=== PATIENT | male | born 1955 | race Caucasian/White ===

== ENCOUNTER 2016-12-10 09:00 | Observation (INO) | payer OTHER ==
--- NOTE | 2016-12-03 16:45 | HP ---
CC: Dr. Roblero; Dr. López; Preadmission Testing at the Hospital HISTORY AND PHYSICAL EXAM: DATE OF ADMISSION: 12/24/16 CHIEF COMPLAINT: Increasing left knee pain and swelling. HISTORY OF PRESENT ILLNESS: This 60-year-old white male has been having increased discomfort of his left knee over the years. He says that he had a football injury dating back to 1972 of the left knee. He has had pain and weakness of the left knee that is increasing. It is worse with walking. He has difficulty going up and downstairs as well. Dr. López has scheduled the patient for left total knee replacement on 12/24/16 at [facility]. PAST MEDICAL HISTORY: The patient is under the care of Dr. Andre Roblero. The patient is having cardiac evaluation preoperatively with Dr. Dugan. He has a stress test scheduled for December 03 and a followup appointment to discuss the results on December 14 for surgery clearance regarding his cardiac status. The patient has a history of congestive heart failure dating back to year 1999. He has a history of hypertension, leg edema, insulin-dependent diabetes. His blood sugars are in the range of 140 to 170s. He has neuropathy symptoms related to his diabetes in his feet and hands, morbid obesity, and sleep apnea. He had a right rotator cuff full tear with a supraspinatus dating back to May of 2015, which results in some weakness, but no pain. CURRENT MEDICATIONS: 1. Metoprolol 100 mg t.i.d. 2. Potassium 10 mEq b.i.d. 3. Metformin 1000 mg b.i.d. 4. Furosemide 80 mg daily. 5. Lisinopril 40 mg daily. 6. Gabapentin 300 mg q.h.s. 7. Diclofenac 75 mg b.i.d. p.r.n.; the patient does take it b.i.d. 8. He has tramadol 50 mg b.i.d. which he takes every couple of days for breakthrough pain. 9. He also takes vitamin D3 200 units daily. The patient is restarted on Lantus insulin as of 12/02/16, 30 units q.a.m. ALLERGIES: No known drug allergies. FAMILY HISTORY: Father: Hypertension, Parkinson's disease. Mother: Smoker, she of complications of ischemic colitis. Maternal grandfather: Coronary artery disease and [place] in his 60s. Paternal grandmother: CVA in her 80s. Paternal grandfather: [place] in his 80s. SOCIAL HISTORY: The patient lives in the [place] area. He is single. 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 He has never been a smoker. Alcohol is limited to wine or beer couple of drinks per month. REVIEW OF SYSTEMS: He does wear contacts for glasses. He has dyspnea on exertion, deconditioned, occasional ankle edema. He has symptoms of peripheral neuropathy in both feet and in his hands. He denies chest pain with exertion. He has some urinary frequency, very rarely nocturia. As previously mentioned, he does have some weakness of his right shoulder and rotator cuff tear. He has chronic low back pain complaints and left knee pain. PHYSICAL EXAMINATION GENERAL: This 60-year-old white male, who is alert, pleasant, and cooperative. VITAL SIGNS: Height 5 feet 9 inches, weight 300 pounds, blood pressure slightly elevated at 152/86, pulse 68. HEENT: Ears normal. Mouth: Tongue in the midline. Many molars are missing; otherwise, teeth in good repair. Pharynx is clear. NECK: Fair range of motion. No adenopathy. No tenderness. Thyroid benign. BACK: Normal curvature. No tenderness noted of the spine or CVA areas. LUNGS: Clear. HEART: Rhythm is regular. Apical pulse 68 beats per minute. No murmurs. EKG , stress test will be done by Dr. Dugan. ABDOMEN: Massively obese. Active bowel sounds. Abdomen is soft, nontender. No obvious masses or organomegaly. EXTREMITIES: No cyanosis. He does have pitting edema 2+ on the left, 1+ on the right up to the knees. Otherwise, skin is in good condition, warm, dry, pale, pink. No open areas noted. IMPRESSION: Overall general medically, the patient is cleared for his surgery with Dr. Angela López on 12/24/16 for the left total knee replacement. Dr. Dugan's cardiac assessment is still pending. JAVY BANERJEE, LONA [id number]/[facility] #: [id number] [facility]
--- NOTE | 2017-02-03 15:08 | HP ---
HISTORY AND PHYSICAL: DATE OF SURGERY/ADMISSION: 02/09/17 DATE OF OFFICE VISIT: 02/03/17 SURGEON: Angela López MD. PROCEDURE: Left total knee arthroplasty. CHIEF COMPLAINT: Left knee pain. HISTORY OF PRESENT ILLNESS: Max is a 61-year-old gentleman with complaints of left knee pain secondary to advanced osteoarthritis. He has failed conservative management and has elected to proceed with a left total knee arthroplasty which is scheduled for 02/09/17. PAST MEDICAL HISTORY: 1. Diabetes. 2. Hypertension. 3. Congestive heart failure. 4. Obesity. PAST SURGICAL HISTORY: 1. Tonsillectomy. 2. Cardiac catheterization. CURRENT MEDICATIONS: 1. Metoprolol 100 mg. 2. Lisinopril 20 mg once a day. 3. Furosemide 80 mg once a day. 4. Potassium citrate ER 10 mEq twice a day. 5. Metformin 1000 mg twice a day. 6. Diclofenac 75 mg twice a day. 7. Gabapentin 300 mg 3 times a day. 8. Vitamin D3 2000 units once a day. 9. Tramadol 50 mg as needed. 10. Lantus 30 units a day. ALLERGIES: None. FAMILY HISTORY: Denies. SOCIAL HISTORY: This is a 61-year-old gentleman, he lives alone. He does not smoke or use drugs. He uses occasional alcohol. REVIEW OF SYSTEMS: A complete 14-point review of systems was reviewed with the patient, positive for diabetes. He denies history of DVT, PE, anesthesia problems, hepatitis C or HIV. PHYSICAL EXAMINATION GENERAL: He is well developed, well nourished, in no acute distress. He is alert and oriented x3. Pleasant mood and appropriate affect. VITAL SIGNS: He stands 5 feet 9 inches tall, weighs 297 pounds. His blood pressure is 169/85, his heart rate is 57. HEENT: Normocephalic, atraumatic. NECK: Supple. No palpable lymph nodes. CARDIO: Regular rate and rhythm. PULMONARY: His lungs are clear to auscultation bilaterally. ABDOMEN: Soft, nontender, nondistended. MUSCULOSKELETAL: Left lower extremity, the skin is intact. There is moderate joint effusion. Tenderness over the medial and lateral joint line; 10 to 110 degrees of flexion. Lower extremity muscle group strengths are intact at 5/5. He has intact sensation. 2+ dorsalis pedis pulses. NEUROLOGICAL: Cranial nerves II through XII are intact. ASSESSMENT AND PLAN: Max is a 61-year-old gentleman with complaints of left knee pain secondary to advanced osteoarthritis. He has failed conservative management and has elected to proceed with a left total knee arthroplasty, which is scheduled for 02/09/[address] López discussed the risks and benefits of the surgery and all of his questions were answered on today's visit. Coumadin, Percocet, and Colace were sent to his pharmacy for postoperative pain control and DVT prophylaxis. He will see Dr. López back in 2 weeks after the surgery. INOCENTE PAZ [id number]/[facility] #: [id number] MTDD
[2017-02-08] MEDS ORDERED: Buffered Lidocaine 0.9% SYRIN* 5 ML/SYR SYRINGE INTRADERM ONE (10:57)
[2017-02-09] MEDS ORDERED: Gabapentin CAP(*) 300 MG PO ONE (06:00)
[2017-02-09] MEDS ORDERED: Famotidine IV* 10 MG/ML 2 ML (20 mg) IV ONE (06:00)
[2017-02-09] MEDS ORDERED: Famotidine IV* 10 MG/ML 2 ML (20 mg) ONE (09:45)
[2017-02-09] MEDS ORDERED: Gabapentin CAP(*) 300 MG ONE (09:46)
[2017-02-09] MEDS ORDERED: CeFAZolin 1 GM PREMIX(*) 1 GM BAG (REFRIGERATE) IVPB ONE (09:46)
[2017-02-09] MEDS ORDERED: ceFAZolin 2 GM PREMIX(*) 0 GM/0 ML BAG IVPB ONE (09:46)
[2017-02-09] MEDS ORDERED: Buffered Lidocaine 0.9% SYRIN* 5 ML/SYR SYRINGE ONE (09:46)
[2017-02-09] MEDS ORDERED: fentaNYL* 50 MCG/ML 2 ML VIAL (100 MCG VIAL) ONE (09:51)
[2017-02-09] MEDS ORDERED: KETAMINE HCL* 50 MG/ML 10 ML VIAL ONE (09:52)
[2017-02-09] MEDS ORDERED: Midazolam* 1 MG/ML 5 ML VIAL (5 MG) ONE (09:52)
[2017-02-09] MEDS ORDERED: Propofol* 10 MG/ML 20 ML BTL IV PUSH ONE (09:54)
[2017-02-09] MEDS ORDERED: Ketorolac INJ* 30 MG/ML 1 ML VIAL ONE (09:54)
[2017-02-09] MEDS ORDERED: Lidocaine 2% PF * 5 ML VIAL ONE (09:54)
[2017-02-09] MEDS ORDERED: Ondansetron INJ* 2 MG/ML VIAL ONE (09:54)
[2017-02-09] MEDS ORDERED: Dexamethasone IV* 4 MG/ML 1 ML (4 MG) ONE (09:54)
[2017-02-09] MEDS ORDERED: ROPIVACAINE 5 MG/ML 30 ML BTL (0.5%) ONE (09:55)
[2017-02-09] MEDS ORDERED: diPHENhydraMINE IV* 50 MG/ML 1 ml VIAL (BENADRYL) IV PRN (12:24)
[2017-02-09] MEDS ORDERED: Acetaminophen TAB* 325 MG PO PRN (12:24)
[2017-02-09] MEDS ORDERED: Ondansetron INJ* 2 MG/ML VIAL IV PRN (12:24)
[2017-02-09] MEDS ORDERED: Morphine INJ* 2 MG/ML 1 ML SYRINGE IV PRN (12:24)
[2017-02-09] MEDS ORDERED: Docusate CAP* 100 MG PO PRN (12:41)
[2017-02-09] MEDS ORDERED: Bisacodyl SUPP* 10 MG SUPP PR PRN (12:42)
[2017-02-09] MEDS ORDERED: diPHENhydraMINE PO* 50 MG PO PRN (13:44)
[2017-02-09] MEDS ORDERED: Furosemide IV* 10 MG/ML VIAL (40 MG) IV SLOW PU ONE (13:44)
[2017-02-09] MEDS ORDERED: Dextrose 50% Syringe 50 ML* 25 GM/50 ML SYRINGE IV PUSH PRN (13:44)
[2017-02-09] MEDS ORDERED: traMADol TAB* 50 MG PO PRN (13:46)
[2017-02-09 15:13] LABS: Hematocrit 40 % (42-52); Hemoglobin 13.6 g/dl (14.0-18.0); Mean Corpuscular HGB Conc 34 g/dl (31-36); Mean Corpuscular Hemoglobin 32 pg (27-31); Mean Corpuscular Volume 94 fL (80-94); Mean Platelet Volume 8 um3 (7.4-10.4); Red Blood Count 4.21 10^6/ul (4.0-5.4); Red Cell Distribution Width 13 % (10.5-15); White Blood Count 9.2 10^3/ul (3.5-10.8)
[2017-02-09] MEDS ORDERED: Furosemide IV* 10 MG/ML VIAL (40 MG) ONE (15:26)
[2017-02-09 15:29] LABS: BUN/Creatinine Ratio 19.1 (8-20); C Reactive Protein 139.4 mg/L (< 5.00); Calcium 9.2 mg/dL (8.6-10.3); EGFR African American 82.6 (>60); EGFR Non-African American 64.2 (>60); Potassium 4.3 mmol/L (3.5-5.0)
[2017-02-09] MEDS: predniSONE TAB* 20 MG PO SCH (15:32)
[2017-02-09] MEDS: Heparin VIAL(*) 5000 UNITS/ML VIAL (FIVE THOUSAND) SUBCUT SCH ×2 (15:33→21:40)
[2017-02-09] MEDS: oxyCODONE/Acetamin 5/325 MG* TAB PO PRN ×2 (15:39→19:52)
[2017-02-09] MEDS: ceFAZolin 2 GM PREMIX(*) 2 GM/50 ML BAG IVPB SCH (16:52)
[2017-02-09] MEDS: Insulin LISPRO* 1 UNITS UNIT SUBCUT SCH (18:09)
[2017-02-09] MEDS: Cyclobenzaprine TAB* 10 MG PO PRN (18:09)
[2017-02-09] MEDS: Metoprolol Tartrate TAB* 100 MG TAB PO SCH (19:52)
[2017-02-09] MEDS: Famotidine IV* 10 MG/ML 2 ML (20 mg) IV SCH (19:52)
[2017-02-09] MEDS: Gabapentin CAP(*) 300 MG PO SCH (21:44)
[2017-02-09] MEDS ORDERED: NS 0.9% 500 ML BAG* 500 ML IV ONE (22:00)
--- NOTE | 2017-02-09 22:14 | HP ---
ADMISSION HISTORY AND PHYSICAL: DATE OF ADMISSION: 02/09/17 CHIEF COMPLAINT: Bilateral lower extremity pain, swelling, and erythema. ADMITTING DIAGNOSIS: Bilateral lower extremity cellulitis and edema, inability to ambulate, unsafe to return to home. HISTORY OF PRESENT ILLNESS: Mr. Domínguez is a 61-year-old gentleman with chronic left knee pain due to severe advanced arthritis. He has been scheduled for left total knee arthroplasty. On his preoperative testing, he was found to have calcification along the mediastinal region. A CT of the chest with contrast was ordered. This showed benign thyroid calcification and some granulomatous chronic-appearing disease of the lungs. He was cleared for surgery by Dr. Roblero and we planned to proceed. The patient presents today to the preop area reporting that since the contrast, he has had swelling and itching of his lower extremities. The itching caused him to scratch and he does have superficial open wounds. He then started to develop swelling, erythema, pain, and difficulty ambulating. On presentation, the patient certainly has bilateral lower extremity warmth and erythema consistent with cellulitis. He has not had any antibiotics. He was unable to ambulate normally and had to be assisted for transfer here. He is unable to return to home, but is clearly not a surgical candidate for an elective total knee arthroplasty today. We will admit him for treatment of the bilateral lower extremity cellulitis and edema. He will have physical therapy. He will either advance or be discharged to a nursing home facility where he is more safe. PAST MEDICAL HISTORY: Diabetes; hypertension; congestive heart failure; obesity ; obstructive sleep apnea; diabetes, type 2. PAST SURGICAL HISTORY: T and A, cardiac cath. CURRENT MEDICATIONS: 1. Metoprolol 100 mg p.o. daily. 2. Lisinopril 20 mg p.o. daily. 3. Furosemide 80 mg p.o. daily. 4. Potassium citrate ER 10 mEq p.o. b.i.d. 5. Metformin 1000 mg p.o. b.i.d. 6. Diclofenac 75 mg p.o. b.i.d. 7. Gabapentin 300 mg p.o. t.i.d. 8. Vitamin D3 2000 units p.o. daily. 9. Tramadol 50 mg p.o. p.r.n. 10. Lantus 30 units daily. ALLERGIES: No known drug allergies. FAMILY HISTORY: Denies. SOCIAL HISTORY: The patient lives alone. He normally ambulates with a cane or rolling walker. No tobacco or recreational drug use. Some occasional alcohol use. REVIEW OF SYSTEMS: Fourteen systems were reviewed with the patient today, positive for bilateral knee pain, bilateral lower extremity swelling and warmth , peeling skin on his lower extremities, superficial abrasions from scratching of his lower extremities, lower extremity itching, pain with ambulation. Denies fevers, chills, chest pain, shortness of breath. Otherwise, review of systems is negative or not relevant. PHYSICAL EXAMINATION GENERAL: The patient is a morbidly obese male, in no apparent distress, alert and oriented x3, pleasant mood and appropriate affect. VITAL SIGNS: Temperature 37.4, pulse 69, blood pressure 142/60, 95% oxygen saturation on room air. HEENT: Atraumatic, normocephalic. Pupils are equal and reactive to light. NECK: Trachea midline. Neck supple. No palpable lymph nodes. LUNGS: Clear to auscultation bilaterally. HEART: S1 and S2. ABDOMEN: Soft, nontender, and nondistended. EXTREMITIES: Bilateral lower extremities: The patient has multiple superficial abrasions of his anterior knee and tibia. He has right greater than left erythema and warmth of the calf with cellulitis. This reaches up to mid calf. He has 2+ pitting edema to the mid calf bilaterally. He has peeling skin along his feet, which are swollen bilaterally. 2+ palpable DP pulses. Intact sensation to light touch. He has pain inhibiting dorsiflexion and plantar flexion and this is 4+/5 strength. ASSESSMENT AND PLAN: Mr. Domínguez is a 61-year-old gentleman with advanced arthritis of the left knee joint. He is here today for left total knee arthroplasty, which will be canceled due to bilateral lower extremity cellulitis and edema. He is not an appropriate surgical candidate today. The patient and his brother expressed that he is unsafe to return home as he is having difficulty standing or transferring. We will admit the patient. Plan will be for hospitalist consult. We will work on decreasing his bilateral lower extremity edema. He will have IV Ancef for the cellulitis. We will have Physical Therapy to help to him ambulate. Our plan will be to improve his cellulitis and edema in order to assist his ambulation. If he is able to transfer and ambulate on his own, he will be discharged to home. If not, we may need to look into nursing home facility placement for this patient. He will have p.r.n. pain medication and his home medications. He will have a diabetic diet. He will be weightbearing as tolerated bilateral lower extremities. He will have a rolling walker to ambulate. [id number]/[facility] #: [id number] [facility]van
--- NOTE | 2017-02-09 22:39 | CONS ---
CC: Geoff Meeks MD; Andre Roblero MD; Angela López MD * CONSULTATION REPORT: DATE OF CONSULT: 02/09/17 PRIMARY CARE PROVIDER: Geoff Meeks MD and Andre Roblero MD ATTENDING PHYSICIAN WHILE IN THE HOSPITAL: Perez Hunter MD (report dictated by Connor Maradiaga NP). REQUESTING PHYSICIAN FOR CONSULTATION: Angela López MD REASON FOR MEDICAL CONSULTATION: Evaluation of lower extremity edema and erythema. HISTORY OF PRESENT ILLNESS: Mr. Domínguez is a 61-year-old male patient. He does carry a history of mild non-obstructive coronary artery disease. He did have a heart catheterization done in December after he had an abnormal stress test in November , which he underwent that for perioperative risk stratification and evaluation. He also recently had a CAT scan that was just done 4 days ago and came into preop holding today for an elective left total knee as he has been having significant amount of left knee pain failing conservative therapy. Unfortunately, the case was canceled when it was noted that both his legs appeared to be swollen. He did have some erythema bilaterally and it was noted that his skin, particularly on the soles of his feet and palms of his hand at times had sloughing off. He denied having any fevers or chills. He says that it is painful to walk on his feet. He denies having any mouth lesions or lesions in his eyes. He denies having any chest pain or shortness of breath, or any recent cough. He does state that after having the heart catheterization with IV dye, he did have a diffuse rash and itching and he has also noticed that this lower extremity erythema has been itching at times as well and he says he has notable abrasion and scratches from him itching. He was evaluated by Anesthesia. There were concerns that he may not be medically optimized for the procedure, so it was canceled and he was admitted to the surgical services by Dr. López, and we were asked to evaluate in consult. PAST MEDICAL HISTORY: Significant for: 1. Diabetes. 2. Hypertension. 3. MARCO. 4. History of CHF. 5. CAD, which is non-obstructive, minimal. 6. History of arthritis. 7. Lung nodules. PAST SURGICAL HISTORY: 1. He has had cardiac catheterization. 2. Tonsillectomy. HOME MEDICATIONS: According to the preop list include: 1. Metformin 1000 mg p.o. b.i.d. 2. Ultram 50 mg p.o. b.i.d. as needed. 3. Potassium chloride 10 mEq p.o. b.i.d. 4. Metoprolol 100 mg p.o. t.i.d. 5. Lisinopril 40 mg daily. 6. Lantus 30 units subcu q.a.m. 7. Gabapentin 300 mg p.o. at bedtime. 8. Lasix 80 mg daily. 9. Diclofenac 75 mg p.o. b.i.d. 10. Vitamin D3 2000 units p.o. daily. ALLERGIES TO MEDICATIONS: Include CT DYE. FAMILY HISTORY: Mother had a history of ischemic bowel and father had a history of Parkinson. SOCIAL HISTORY: He does not smoke. He occasionally drinks alcohol. Surrogate decision maker is his friend, Rafy. REVIEW OF SYSTEMS: There is no documented fever. He denied having any significant weight change. There was no double vision. There is no ear discharge. He denied having any rhinorrhea. No sore throat. No thyroid enlargement. He denied having any chest pain. There was no orthopnea. No nocturnal dyspnea. There was no abdominal pain. No vomiting. No dysuria, no frequency. No loss of consciousness. No pruritus and no skin ulcerations. Review of 14 systems completed, all others negative. PHYSICAL EXAMINATION: Vital Signs: Blood pressure 142/60 with a pulse of 69, respirations 18, O2 sat 95%, temperature of 99.3. General: At this time, Mr. Domínguez is a 61-year-old male patient. He appears to be well nourished, well developed. He is sitting in the PACU bed. He does not appear to be in any acute distress. HEENT: Head atraumatic. Eyes: EOMs intact. Sclerae anicteric and not pale. Neck: Supple. Throat: Oral mucosa appears to be moist. There was no oropharyngeal erythema. There was no oral lesion. Lungs: Clear to auscultation bilaterally. No wheezes, rales, or rhonchi. Abdomen: Soft, it was flat, it was nontender. Bowel sounds present. Extremities: Pulses were 2+ throughout. He did have +3 pitting edema bilaterally. Distal CSM checks were intact. He had 5/5 strength. Neurologically, he is awake, alert, and oriented x3. Tongue midline. Rotary Dump Operator were equal. No gross focal deficits. Skin: He had bilateral lower extremity erythema, worse on the left than on the right. There was warmth there. He had noted skin sloughing to the soles of his feet. At this point, he did have what appeared to be again a blanchable nonraised rash at this point to the lower extremities, otherwise intact. DIAGNOSTIC STUDIES/LAB DATA: Preop revealed WBC 7.0, RBC of 4.42, hemoglobin of 13.5, hematocrit of 41, platelet count of 263. His INR was 0.90. Sodium 135 , potassium 4.5, chloride of 102, bicarb 25, BUN 18, creatinine of 0.96, glucose 119. A1c 8.7. His AST 26, ALT 32. He had a urine, which was obtained, it showed 1+ protein. He did have a chest CT done recently, which showed, impression: 1. Peripherally calcified nodule arising from the left thyroid lobe and likely benign. Recommend thyroid ultrasound. 2. Several small calcified, and non-calcified pulmonary nodules suggestive of old granulomatous disease, although non-specific. Recommend followup with noncontrast CT in 6 months' time. 3. Hepatic steatosis. 4. Cholelithiasis. He did have a heart catheterization done on the 25 of December, which revealed mild noncritical disease of the diagonal branch of the LAD. He had an EF of 40% . He did have an EKG that showed sinus bradycardia, rate of 53. No ST elevations or T- wave inversions. Old medical records reviewed. ASSESSMENT AND PLAN: Mr. Domínguez is a 61-year-old male patient coming into originally for an elective left total knee; however, the procedure was canceled due to the bilateral lower extremity swelling and erythema. We were asked to evaluate in consult. Recommendations at this point are: 1. Bilateral lower extremity swelling, edema and erythema: Again, etiology is unclear. There was concern for cellulitis. However, with the skin sloughing and the fact that he, 4 days ago, had some CT with a dye and he recently had reaction to dye about a month ago, I question if this is an allergic reaction that may be delayed. My plan is, I would continue the Ancef 2 g every 8 hours, but I will also put him on steroids and see how he responds. I did order Benadryl as needed because he has been itching and I also did order some Pepcid as well, and I am going to go ahead and give him the Lasix 80 mg IV. He did not take that today, which is certainly may be contributing to the overall edema and we will continue to follow. If this does not improve, may need to consider to further workup such as punch biopsy, possible ultrasound; but at this point, I think we can hold off and see if he responds to medical therapy. I think this is a hypersensitivity to the CT dyes. I will check an ESR and CRP. 2. Diabetes mellitus, lispro sliding scale, continue Lantus. 3. Hypertension: Continue meds as prescribed. 4 Obstructive sleep apnea: He does not wear a mask and follow with his primary for this. 5. Congestive heart failure: We will give him 80 of Lasix now and then we will continue his p.o. Lasix going forward. 6. Depression and anxiety: Continue her Wellbutrin. 7. Arthritis: Continue his current medical regimen. 8. Lung nodule: Follow with the primary. 9. DVT prophylaxis: I have placed him on heparin subcu. 10. Code status: He is a full code. 11. Fluids, electrolytes, and nutrition: He can have a consistent carb diet. TIME SPENT: Time spent on the consult was 60 minutes, greater than half the time was spent [id number] with the patient obtaining my history and physical, the other half the time spent going over the plan of care with the patient and implementing plan of care. I did discuss the plan of care with my attending, Dr. Hunter, he is in agreement. CONNOR MARADIAGA, LONA [id number]/[facility] #: [id number] FRANK
[2017-02-10] MEDS: ceFAZolin 2 GM PREMIX(*) 2 GM/50 ML BAG IVPB SCH ×3 (00:01→16:34)
[2017-02-10] MEDS: oxyCODONE/Acetamin 5/325 MG* TAB PO PRN (05:03)
[2017-02-10] MEDS: Heparin VIAL(*) 5000 UNITS/ML VIAL (FIVE THOUSAND) SUBCUT SCH ×3 (05:40→22:07)
[2017-02-10] MEDS: Cyclobenzaprine TAB* 10 MG PO PRN ×2 (05:43→22:06)
[2017-02-10 06:15] LABS: Hematocrit 37 % (42-52); Hemoglobin 12.5 g/dl (14.0-18.0); Mean Corpuscular HGB Conc 34 g/dl (31-36); Mean Corpuscular Hemoglobin 32 pg (27-31); Mean Corpuscular Volume 93 fL (80-94); Mean Platelet Volume 8 um3 (7.4-10.4); Red Blood Count 3.92 10^6/ul (4.0-5.4); Red Cell Distribution Width 13 % (10.5-15)
[2017-02-10 06:30] LABS: BUN/Creatinine Ratio 17.4 (8-20); Calcium 9.1 mg/dL (8.6-10.3); EGFR African American 77.9 (>60); EGFR Non-African American 60.6 (>60); Potassium 3.8 mmol/L (3.5-5.0)
--- NOTE | 2017-02-10 06:45 | PN ---
Progress Note - Progress Note Date of Service: 02/10/17 SOAP: Subjective: Pt. reports swelling and pain are improved already. Objective: BLE - teds removed, edema much improved. erythema and warmth much improved. df /pf improved, full sens lt. 2+ dp pulses. Assessment: 61 yo M with cancelled LTKA secondary to BLE edema, superficial scratches and cellulitis Plan: Pt. has dramatic improvement overnight. WBC 12. Cont. IV abx, will switch to po on discharge. Steroids and furosemide effective as well. Mobilize with PT/OT. Plan d/c to home with services vs snf.
[2017-02-10] MEDS: Famotidine IV* 10 MG/ML 2 ML (20 mg) IV SCH ×2 (08:14→20:47)
[2017-02-10] MEDS: Insulin LISPRO* 1 UNITS UNIT SUBCUT SCH ×3 (08:15→17:38)
[2017-02-10] MEDS: Insulin GLARGINE(*) 1 UNITS UNIT SUBCUT SCH (08:16)
[2017-02-10] MEDS: Metoprolol Tartrate TAB* 100 MG TAB PO SCH ×2 (08:18→20:47)
[2017-02-10] MEDS: Lisinopril TAB* 10 MG PO SCH (08:18)
[2017-02-10] MEDS: predniSONE TAB* 20 MG PO SCH (08:19)
[2017-02-10] MEDS: Furosemide TAB* 40 MG PO SCH (08:19)
[2017-02-10] MEDS ORDERED: Furosemide TAB* 40 MG PO SCH (09:00)
[2017-02-10 10:34] LABS: Urine Bacteria Absent (Absent); Urine Bilirubin Negative (Negative); Urine Glucose 1+(50 mg/dL) (Negative); Urine Nitrite Negative (Negative)
--- NOTE | 2017-02-10 15:31 | PN ---
Subjective Date of Service: 02/10/17 Interval History: Pt stated that he developed leg edema, erythema and pruritus on his body after IV contrasted CT on 02/05/17. a day prior to that he fell and injured his "good" right knee. Up till then he was able to ambulate with crouches. Objective Active Medications: Acetaminophen (Tylenol Tab*) 650 mg PO Q6H PRN PRN Reason: PAIN OR TEMPERATURE Bisacodyl (Dulcolax Supp*) 10 mg DE DAILY PRN PRN Reason: CONSTIPATION Cyclobenzaprine HCl (Flexeril Tab*) 10 mg PO TID PRN PRN Reason: SPASMS Last Admin: 02/10/17 05:43 Dose: 10 mg Dextrose (D50w Syringe 50 Ml*) 12.5 gm IV PUSH .FOR FS < 60 - SS PRN PRN Reason: FS < 60 Diphenhydramine HCl (Benadryl Iv*) 25 mg IV Q6H PRN PRN Reason: Pruritis or insomnia Diphenhydramine HCl (Benadryl Po*) 50 mg PO Q6H PRN PRN Reason: ITCHING Docusate Sodium (Colace Cap*) 100 mg PO DAILY PRN PRN Reason: CONSTIPATION Famotidine (Pepcid Iv*) 20 mg IV BID [facility] Last Admin: 02/10/17 08:14 Dose: 20 mg Furosemide (Lasix Tab*) 80 mg PO DAILY [facility] Last Admin: 02/10/17 08:19 Dose: 80 mg Gabapentin (Neurontin Cap(*)) 300 mg PO BEDTIME [facility] Last Admin: 02/09/17 21:44 Dose: 300 mg Heparin Sodium (Porcine) (Heparin Vial(*)) 5,000 units SUBCUT Q8HR [facility] Last Admin: 02/10/17 13:51 Dose: 5,000 units Cefazolin Sodium/Dextrose (Kefzol Premix(*)) 2 gm in 50 mls @ 100 mls/hr IVPB Q8H [facility] Last Admin: 02/10/17 08:12 Dose: 100 mls/hr Lactated Ringer's (Lactated Ringers 1000 Ml Bag*) 1,000 mls @ 100 mls/hr IV PER RATE [facility] Last Admin: 02/10/17 14:17 Dose: 100 mls/hr Insulin Glargine (Lantus(*)) [facility] [place] Last Admin: 02/10/17 08:16 Dose: 30 units Insulin Human Lispro (Humalog*) 0 units SUBCUT AC [facility] PRN Reason: Protocol Last Admin: 02/10/17 13:45 Dose: Not Given Lisinopril (Prinivil Tab*) 40 mg PO DAILY [facility] Last Admin: 02/10/17 08:18 Dose: 40 mg Metoprolol Tartrate (Lopressor Tab*) 100 mg PO BID [facility] Last Admin: 02/10/17 08:18 Dose: 100 mg Morphine Sulfate (Morphine Inj (Syringe)*) 2 mg IV Q2H PRN PRN Reason: PAIN - UNCONTROLLED Last Admin: 02/09/17 16:58 Dose: 2 mg Ondansetron HCl (Zofran Inj*) 4 mg IV Q6H PRN PRN Reason: NAUSEA Oxycodone/Acetaminophen (Percocet 5/325 Tab*) 1 tab PO Q4H PRN PRN Reason: PAIN Last Admin: 02/10/17 05:03 Dose: 1 tab Prednisone (Deltasone Tab*) 40 mg PO DAILY [facility] Last Admin: 02/10/17 08:19 Dose: 40 mg Tramadol HCl (Ultram*) 50 mg PO BID PRN PRN Reason: PAIN Vital Signs 02/09/17 02/09/17 02/09/17 15:38 15:39 16:58 Temperature 98.1 F Pulse Rate 98 Respiratory 18 22 22 Rate Blood Pressure (mmHg) O2 Sat by Pulse 98 Oximetry 02/09/17 02/09/17 02/09/17 17:39 17:58 18:09 Temperature Pulse Rate Respiratory 22 22 22 Rate Blood Pressure (mmHg) O2 Sat by Pulse Oximetry 02/09/17 02/09/17 02/09/17 19:18 19:52 20:09 Temperature 98.5 F Pulse Rate 108 Respiratory 23 20 20 Rate Blood Pressure 156/81 (mmHg) O2 Sat by Pulse 98 Oximetry 02/09/17 02/09/17 02/09/17 20:11 21:44 21:48 Temperature Pulse Rate 98 Respiratory 22 24 24 Rate Blood Pressure 139/76 (mmHg) O2 Sat by Pulse 94 Oximetry 02/09/17 02/09/17 02/09/17 21:52 23:41 23:44 Temperature 98.3 F Pulse Rate 86 Respiratory 24 24 24 Rate Blood Pressure 152/85 (mmHg) O2 Sat by Pulse 94 Oximetry 02/10/17 02/10/17 02/10/17 03:41 05:03 05:43 Temperature 97.6 F Pulse Rate 56 Respiratory 22 22 22 Rate Blood Pressure 128/60 (mmHg) O2 Sat by Pulse 97 Oximetry 02/10/17 02/10/17 02/10/17 07:03 07:45 07:50 Temperature 97.7 F Pulse Rate 58 Respiratory 20 18 18 Rate Blood Pressure 145/72 (mmHg) O2 Sat by Pulse 98 Oximetry 02/10/17 11:42 Temperature 98.7 F Pulse Rate 62 Respiratory 18 Rate Blood Pressure 154/66 (mmHg) O2 Sat by Pulse 100 Oximetry Oxygen Devices in Use Now: None Appearance: 61 yo M in nAD, AAOx3 Eyes: No Scleral Icterus, PERRLA Ears/Nose/Mouth/Throat: NL Teeth, Lips, Gums, Mucous Membranes Moist Neck: NL Appearance and Movements; NL JVP, Trachea Midline Respiratory: Symmetrical Chest Expansion and Respiratory Effort, Clear to Auscultation Cardiovascular: NL Sounds; No Murmurs; No JVD, RRR Abdominal: NL Sounds; No Tenderness; No Distention, No Hepatosplenomegaly Lymphatic: No Cervical Adenopathy Extremities: No Clubbing, Cyanosis, - - nonpitting pedal and calf edema b/l +1, R knee resolving ecchymosis, erythema on b/l medial feet appears to be venous stasis and not cellulitis related Skin: No Rash or Ulcers, No Nodules or Sclerosis Neurological: Alert and Oriented x 3, - - unable to raise left leg off bed due to pain in left knee. able to raise R leg off bed by 5 degrees x 2 sec before lowering it to bed. Result Diagrams: 02/10/17 05:47 02/10/17 05:47 Assess/Plan/Problems-Billing Assessment: 61 yo M with h/o knee OA presents with leg edema and cellulitis - Patient Problems (1) Cellulitis Comment: good response to Ancef, but pt stated that the skin on his hands and feet desquamated after both cardiac cath and CT. No eosynophilia on WBC diff. will cont Prednisone for 5 days. (2) Leg edema Comment: b/l , acute on chronic got IV Lasix on 02/09/17, will tx with an additional Lasix 40 IV now. (3) DM2 (diabetes mellitus, type 2) Comment: Fair control with Lantus and ISS, metformin on hold. (4) CHF (congestive heart failure) Comment: systolic, EF noted at 40%, nonobstructive CAD noted on cath earlier this year. cont Lasix , BB, ACEI (5) HTN (hypertension) Comment: SBP's in 140's, will cont lisinopril and lopressor, may need an adddtional agent if it increases. (6) DVT prophylaxis Comment: heparin sc Status and Disposition: inpatient, medicine consult.plan to go to [facility]. Appears medically stable for discharge
[2017-02-10] MEDS ORDERED: Furosemide IV* 10 MG/ML VIAL (40 MG) IV ONE (16:45)
[2017-02-10] MEDS: Gabapentin CAP(*) 300 MG PO SCH (22:07)
[2017-02-11] MEDS: ceFAZolin 2 GM PREMIX(*) 2 GM/50 ML BAG IVPB SCH ×2 (00:09→08:55)
[2017-02-11] MEDS: oxyCODONE/Acetamin 5/325 MG* TAB PO PRN ×2 (03:47→11:11)
[2017-02-11] MEDS: Heparin VIAL(*) 5000 UNITS/ML VIAL (FIVE THOUSAND) SUBCUT SCH ×2 (05:30→14:53)
[2017-02-11 08:46] LABS: BUN/Creatinine Ratio 21.4 (8-20); Calcium 9.4 mg/dL (8.6-10.3); Potassium 3.5 mmol/L (3.5-5.0)
[2017-02-11] MEDS: Famotidine IV* 10 MG/ML 2 ML (20 mg) IV SCH (08:55)
[2017-02-11] MEDS: Lisinopril TAB* 10 MG PO SCH (08:55)
[2017-02-11] MEDS: Furosemide TAB* 40 MG PO SCH (08:55)
[2017-02-11] MEDS: Insulin GLARGINE(*) 1 UNITS UNIT SUBCUT SCH (08:56)
[2017-02-11] MEDS: Metoprolol Tartrate TAB* 100 MG TAB PO SCH (08:56)
[2017-02-11] MEDS ORDERED: predniSONE TAB* 20 MG PO SCH (09:00)
[2017-02-11] MEDS: Insulin LISPRO* 1 UNITS UNIT SUBCUT SCH ×2 (09:03→13:55)
[2017-02-11] MEDS ORDERED: Magnesium Hydroxide LIQ* 30 ML UDC PO PRN (11:05)
[2017-02-11] MEDS ORDERED: Magnesium Hydroxide LIQ* 30 ML UDC ONE (11:05)
[2017-02-11] MEDS: Cyclobenzaprine TAB* 10 MG PO PRN (11:10)
[2017-02-11 11:29] VITALS: BP 148/68
--- NOTE | 2017-02-11 14:32 | PN ---
Progress Note - Progress Note Date of Service: 02/11/17 SOAP: Subjective: []Patient seen at bedside, feeling better. Bed offered at [facility] for this afternoon and insurance has been approved. Objective: [] Vital Signs Temp 98.7 F 02/11/17 11:21 Pulse 66 02/11/17 11:21 Resp 16 02/11/17 13:10 BP 148/68 02/11/17 11:21 Pulse Ox 96 02/11/17 11:21 Intake & Output 02/10/17 02/11/17 02/11/17 18:59 06:59 18:59 Intake Total 2085 1170 950 Output Total 2400 650 1475 Balance -315 520 -525 Weight 295 lb 12.8 oz 289 lb 14.4 oz Intake: IV Fluids 1255 LR 1255 IVPB 110 ABX - CEFAZOLIN 110 Oral 720 1170 950 Output: Urine 2400 400 1475 Hough 250 Other: Estimated Void Medium Laboratory Results - last 24 hr 02/10/17 02/11/17 02/11/17 16:38 07:57 12:36 Sodium 135 Potassium 3.5 Chloride 98 L Carbon Dioxide 30 Anion Gap 7 BUN 25 H Creatinine 1.17 Est GFR ( Amer) 81.0 Est GFR (Non-Af Amer) 63.0 BUN/Creatinine Ratio 21.4 H Glucose 130 H POC Glucose (mg/dL) 256 H 215 H Calcium 9.4 BLE mild skin peeling on soles of feet, no erythema or significant swelling. NVI BLE Calves nontender and soft Assessment: []Cellulitis/ allergic reaction to IV contrast dye BLE Plan: []Discharge to [facility] Continue on oral Keflex and Prednisone as outlined by Dr. Espinoza Follow up as scheduled next week with Dr. López- pascual TKR as appropriate.
--- NOTE | 2017-02-11 15:34 | DS ---
CC: Dr. Roblero; Dr. López * DISCHARGE SUMMARY: DATE OF ADMISSION: 02/09/17 DATE OF DISCHARGE: 02/11/17 PRIMARY CARE PHYSICIAN: Dr. Roblero. DISCHARGE DIAGNOSES: 1. Cellulitis versus allergic skin reaction about the lower extremities. It is possible that the patient had allergies to CT SCAN DYE. 2. Leg edema due to possible exacerbation of congestive heart failure. It is also plausible that the patient's allergic skin reaction exacerbated the patient 's leg edema. SECONDARY DIAGNOSES: 1. History of chronic systolic congestive heart failure with the EF of 40%. 2. Diabetes. 3. Hypertension. 4. Obstructive sleep apnea. 5. Non-obstructive mild coronary artery disease. 6. Arthritis. 7. History of calcified lung nodules that was noted on recent CT. MEDICATIONS AT DISCHARGE: Include: 1. Prednisone 40 mg daily with the end date on 02/14/17. 2. Keflex 500 mg 3 times a day with the end date on 02/16/17. 3. Diclofenac sodium 75 mg b.i.d. p.r.n. 4. Vitamin D3 2000 units daily. 5. Flexeril 10 mg t.i.d. p.r.n. 6. Colace 100 mg daily p.r.n. 7. Lasix 80 mg daily. 8. Neurontin 300 mg at bedtime. 9. Insulin lantus 30 units daily. 10. Lisinopril 40 mg daily. 11. Metoprolol tartrate 100 mg 3 times a day. 12. Potassium chloride 10 mEq b.i.d. 13. Ultram 50 mg b.i.d. p.r.n. 14. Glucophage 1000 mg b.i.d. 15. Oxycodone and acetaminophen 5/325 mg 1 tablet every 4 hours p.r.n. LABORATORY DATA AND STUDIES PERFORMED DURING THE HOSPITAL STAY: Included: On 02/11/17, sodium 135, potassium 3.5, chloride 98, carbon dioxide 30, BUN 25, creatinine 1.17. CBC on 02/10/17, white blood cell count of 12.0, hemoglobin 12.5, hematocrit 37, and platelets of 272,000. The patient's erythrocyte sedimentation rate was 56. C-reactive protein was 139. The patient also was taken care of by Dr. López from orthopedic surgery during the hospital stay. HOSPITALIZATION COURSE: The 61-year-old Mr. Domínguez has a history of severe osteoarthritis apart from other chronic medical conditions. The patient was originally scheduled for surgery of knee replacement by Dr. López and when he came in to be evaluated on the day of his planned surgery, he was noted to have bilateral leg edema and erythema that as per patient occurred right after he had a CT scan with IV DYE to evaluate further pulmonary nodules that were noted on the chest x-ray. The CT scan was on 02/05/17. The patient apparently had a very similar reaction when he had his cardiac catheterization earlier on this year. The patient was admitted to orthopedic service and medical service was consulted. It was noted that the patient most likely has an allergic reaction, but it is also plausible that the patient may have cellulitis. He was treated with intravenous first generation cephalosporin for a possibility of cellulitis. He also was placed on prednisone 40 mg daily and Benadryl on a p.r.n. basis. Due to the leg edema, his Lasix dose was increased. There was also question that the patient has possible exacerbation of his systolic CHF. After the treatment as above mentioned, his leg edema started resolving and the erythema resolved by the time of discharge. It became evident that the patient is unable to take care of himself at home due to severe osteoarthritis and inability to walk independently. The patient was deemed to be a good candidate to be transferred to [facility] for further rehabilitation. His medications were as mentioned above with addition of a couple more days of prednisone and continuation of Keflex for a full course of 7 days. PHYSICAL EXAMINATION AT THE TIME OF DISCHARGE: Blood pressure of 148/68, heart rate of 66 and regular, respiratory rate 16, oxygen saturation 96% on room air, and his temperature is 98.7. General: This is a very pleasant 61-year-old male , who is obese and in no acute distress. Alert, awake, and oriented x3. HEENT : Head: Atraumatic, normocephalic. Eyes: Pupils equal, reactive to light and accommodation. Oropharynx clear. Mucosa moist. Neck: Supple. No JVD. No bruits bilaterally. Cardiovascular: Regular rate and rhythm. No murmur. Respiratory: Clear to auscultation bilaterally. Abdomen: Soft, nontender. Bowel sounds present in all 4 quadrants. Extremities: There is bilateral pitting pedal edema, right more than left. There is no clubbing or cyanosis. There is no erythema evident on today's evaluation. On evaluation of the patient's range of motion in bilateral lower extremities, it is severely limited in the left knee due to the osteoarthritis. The patient has also history of recent fall at home and contusion to the right knee, which is also is painful when checking range of motion. The patient is being discharged to [facility] with recommendation to follow up with the physician at the facility within next 4 to 7 days. Please note that this is a short summary of the patient's hospital stay. Please refer to further medical records for details. TIME SPENT: Approximately 40 minutes was spent on patient's discharge. [id number]/[facility] #: [id number] FRANK
== END 2017-02-11 16:30 | DRG 383 ==
LOC: INTOOBSV 02-09 09:52 → AA 02-09 09:52 → SSU 02-09 12:24
PROVIDERS: ADMIT Orthopaedic Surgery Adult Reconstructive Orthopaedic Surgery; ATTEND Orthopaedic Surgery Adult Reconstructive Orthopaedic Surgery
DX: R60.9 Edema, unspecified (principal); E11.9 Type 2 diabetes mellitus without complications; I10 Essential (primary) hypertension; G47.33 Obstructive sleep apnea (adult) (pediatric); I25.10 Atherosclerotic heart disease of native coronary artery without angina pectoris; M17.12 Unilateral primary osteoarthritis, left knee; Z79.01 Long term (current) use of anticoagulants; Z79.4 Long term (current) use of insulin; Z79.899 Other long term (current) drug therapy; E66.01 Morbid (severe) obesity due to excess calories; Z68.41 Body mass index [BMI] 40.0-44.9, adult; T14.8 Other injury of unspecified body region; L29.9 Pruritus, unspecified; I50.9 Heart failure, unspecified
CPT/HCPCS: 36415; 80048; 81003; 81015; 83605; 85025; 85610; 85652; 86140; 87040; A9270-GY; G0378; J0690; J1100; J1644; J1885; J1940; J2250; J2270; J2405; J2704; J2795; J3010; J7512

== ENCOUNTER 2017-01-12 06:38 | Day surgery (SDC) | payer OTHER ==
--- NOTE | 2017-01-06 22:00 | HP ---
PREOPERATIVE HISTORY AND PHYSICAL: DATE OF SURGERY/ADMISSION: 01/12/17 PROCEDURE: Left wrist carpal tunnel release, right wrist carpal tunnel cortisone injection. CHIEF COMPLAINT: Bilateral hand numbness and tingling, left worse than right. HISTORY OF PRESENT ILLNESS: This is a 61-year-old male with history of congestive heart failure in 1999, diabetes type 2, hypertension and morbid obesity. He is currently complaining of numbness and tingling in his bilateral hands with a lot of trouble holding on to things. He does not particularly feel weakness in his hands but finds himself dropping things. His symptoms are worse on the left than on the right. He is awakened at night somewhat by his carpal tunnel symptoms but also from sleep apnea. The patient is interested in pursuing surgical intervention at this time for his carpal tunnel syndrome. He would like to proceed with a left wrist carpal tunnel release initially and an injection to the right wrist and will likely proceed on to a right wrist carpal tunnel release in the future. The patient recently had a fairly extensive cardiac workup because he is planning to have a knee replacement at the end of January with Dr. López. He had a cardiac catheterization and everything looked good. He has been cleared for knee replacement surgery. Recently he has not had any cardiac symptoms. His blood pressure is controlled by medication and he recently started back on insulin to control his blood sugars. PAST MEDICAL HISTORY: 1. Diabetes type 2. 2. History of congestive heart failure in the year 1999. 3. Hypertension. 4. Morbid obesity. 5. Chronic back pain. PAST SURGICAL HISTORY: 1. Tonsillectomy. 2. Cardiac catheterization in December 2016 for clearance for a total knee arthroplasty in January. CURRENT MEDICATIONS: 1. Insulin 30 units per day. 2. Diclofenac sodium 75 mg 1 tab b.i.d. 3. Furosemide 80 mg daily. 4. Gabapentin 300 mg at bedtime. 5. Lisinopril 40 mg daily. 6. Metformin 1000 mg twice a day. 7. Metoprolol tartrate 100 mg 3 times a day. 8. Potassium citrate ER 10 mEq b.i.d. 9. Tramadol HCl 50 mg b.i.d. p.r.n. 10. Vitamin D3 2000 units daily. ALLERGIES: No known drug allergies. The patient suspects that he might have allergy to adhesive on his skin. FAMILY MEDICAL HISTORY: Parkinson's. 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 He denies tobacco use and recreational drug use. He does report alcohol use on occasion. REVIEW OF SYSTEMS: General: Negative for fevers, chills or night sweats. No known anesthesia problems. HEENT: Negative for headache, lightheadedness or syncopal episodes. Integumentary: Negative for abrasions, lesions, or open wounds. Cardiothoracic: Positive for hypertension, history of congestive heart failure. Negative for current chest pain, palpitations or edema. Pulmonary: Negative for shortness of breath with exertion, chronic cough, COPD. GI: Negative for nausea, vomiting, diarrhea, constipation or GERD. : Negative for nocturia, urinary frequency, urgency, history of UTI's or kidney problems. Musculoskeletal: Positive for current complaint, positive for chronic back pain. Neurological: Negative for history of seizure, stroke, or epilepsy. Endocrine: Positive for diabetes type 2. Negative for thyroid issues. Hematologic: Negative for easy bruising, anemia, excessive bleeding, or history of DVT. Infectious Disease: Negative for history of MRSA, hepatitis C, or HIV. PHYSICAL EXAMINATION GENERAL: Well-developed, well-nourished 61-year-old male, in no acute distress. VITAL SIGNS: Height 5 feet 9 inches, weight 297 pounds. Pulse rate 68, blood pressure 134/104. HEENT: Normocephalic, atraumatic. Pupils are equal, round, and reactive to light and accommodation. Extraocular movements are intact. NECK: Supple. No palpable lymph nodes. Throat is clear. PULMONARY: Lungs are clear to auscultation bilaterally. No wheezes, rales, or rhonchi. CARDIOVASCULAR: Regular rate and rhythm. S1, S2. No murmurs, rubs or gallops. No edema. ABDOMEN: Positive bowel sounds, soft, and nontender. NEUROLOGICAL: Alert and oriented x3. Cranial nerves II through XII are intact. Sensation is intact to light touch. PERIPHERAL VASCULAR: 2+ radial and ulnar pulses negative. MUSCULOSKELETAL: On exam of bilateral hands, he had positive Tinel's sign, more marked on the left than on the right. There is some mild thenar waisting bilaterally. No interosseous muscle waisting. Good strength resisting finger abduction. Mild weakness with thumb abduction bilaterally. Negative Tinel's sign at the ulnar nerves bilaterally. Mildly positive Phalen's test, left worse than right. IMAGING: Nerve conduction studies show bilateral carpal tunnel syndrome, moderate in nature. IMPRESSION: Bilateral carpal tunnel syndrome, clinically left worse than the right. PLAN: The patient is scheduled to undergo a left wrist carpal tunnel release and a right wrist carpal tunnel cortisone injection with Dr. Malone on 01/12/17. He will return to the office 10 to 14 days postop for followup and suture removal. The patient has tramadol HCl 50 mg as prescribed by Dr. Roblero at home and will be using this for postoperative pain management. Should we need to add anything additional, we will do that postoperatively. INOCENTE HOLLIS [id number]/[facility] #: [id number] MTDD
[~2017-01-12 06:38] MED LIST: Buffered Lidocaine 1% SYRIN* 5 ML/SYR SYRINGE INTRADERM ONE; Buffered Lidocaine 1% SYRIN* 5 ML/SYR SYRINGE ONE; Famotidine IV* 10 MG/ML 2 ML (20 mg) IV ONE; Famotidine IV* 10 MG/ML 2 ML (20 mg) ONE
[2017-01-12] MEDS ORDERED: Lidocaine 1% INJ* 10 MG/ML 30 ML SDV ONE (07:15)
[2017-01-12] MEDS ORDERED: methylPREDNISolone ACETATE 80* 80 MG/ML 1 ML VIAL ONE (07:39)
[2017-01-12] MEDS ORDERED: Midazolam* 1 MG/ML 5 ML VIAL (5 MG) ONE (07:42)
[2017-01-12] MEDS ORDERED: fentaNYL* 50 MCG/ML 2 ML VIAL (100 MCG VIAL) ONE (07:42)
[2017-01-12] MEDS ORDERED: Ondansetron INJ* 2 MG/ML VIAL ONE (07:43)
[2017-01-12] MEDS ORDERED: Propofol* 10 MG/ML 20 ML BTL IV PUSH ONE (07:43)
[2017-01-12] MEDS ORDERED: Lidocaine 2% PF * 5 ML VIAL ONE (07:43)
[2017-01-12] MEDS ORDERED: Ketorolac INJ* 30 MG/ML 1 ML VIAL ONE (07:43)
[2017-01-12] MEDS ORDERED: KETAMINE HCL* 50 MG/ML 10 ML VIAL ONE (07:49)
[2017-01-12] MEDS ORDERED: DiMENhydriNATE IV* 50 MG/ML VIAL IV PUSH PRN (08:11)
[2017-01-12] MEDS ORDERED: Acetaminophen TAB* 325 MG PO PRN (08:11)
[2017-01-12 08:35] VITALS: BP 176/80
--- NOTE | 2017-01-14 04:41 | OP ---
DATE OF OPERATION: 01/12/17 [facility] DATE OF : 51 SURGEON: Clari Malone MD [employer] PROFESSOR: INOCENTE Laboy ANESTHESIOLOGIST: Ursula Sevilla MD ANESTHESIA: Local MAC. PRE-OP DIAGNOSIS: Bilateral carpal tunnel syndrome. POST-OP DIAGNOSIS: Bilateral carpal tunnel syndrome. PROCEDURE: Left carpal tunnel release and right carpal tunnel injection. ESTIMATED BLOOD LOSS: Zero. TOURNIQUET TIME: About 5 minutes. INDICATIONS FOR PROCEDURE: Deacon is a 61-year-old male with numbness and tingling in his bilateral hands. Nerve conduction study showed carpal tunnel syndrome, worse on the left, symptomatically presents for left carpal tunnel release and right carpal tunnel injection. DESCRIPTION OF PROCEDURE: The patient was brought to the operating room, given a sedation anesthetic, and a local infiltration of 10 cc of 1% plain lidocaine in the palm of his left hand. He was also injected with 80 mg of Depo-Medrol and 1 cc of 1% plain lidocaine into the right carpal tunnel. The skin of his left hand and forearm was prepped and draped in the usual sterile fashion. The hand and forearm were exsanguinated and tourniquet elevated to 250 mmHg. A longitudinal incision was made in the palm in line with the ring finger. We dissected through the subcutaneous tissue down to the transverse carpal ligament. The ligament was divided sharply with the knife and then more proximally with the scissors. The nerve was dissected free from surrounding tissue and there is an area of moderate compression of the mid-portion of the ligament. The wound was irrigated. The skin edges were reapproximated with 4- 0 nylon sutures. The wound was dressed with Xeroform, 4x4, Webril, and Julien wrap. The patient tolerated the procedure well and was brought to the recovery room in good condition. [id number]/[facility] #: [id number] [facility]
== END 2017-01-12 08:57 | disposition home or self-care (01) ==
LOC: OREAST 06:38
PROVIDERS: ATTEND Orthopaedic Surgery
DX: G56.02 Carpal tunnel syndrome, left upper limb (principal); G56.01 Carpal tunnel syndrome, right upper limb; E11.9 Type 2 diabetes mellitus without complications; Z79.4 Long term (current) use of insulin; Z79.84 Long term (current) use of oral hypoglycemic drugs; I10 Essential (primary) hypertension; E66.01 Morbid (severe) obesity due to excess calories; I25.10 Atherosclerotic heart disease of native coronary artery without angina pectoris
CPT/HCPCS: J1040; J1885; J2001; J2250; J2405; J2704; J3010

== ENCOUNTER 2017-02-25 07:32 | Inpatient (IN) | payer OTHER ==
--- NOTE | 2017-02-23 06:44 | HP ---
PREOPERATIVE HISTORY AND PHYSICAL: DATE OF ADMISSION/SURGERY: 02/25/17 ATTENDING SURGEON: Dr. López (DICTATED BY INOCENTE ROB) PROCEDURE: Left total knee arthroplasty. CHIEF COMPLAINT: Left knee pain. HISTORY OF PRESENT ILLNESS: Mr. Domínguez is a 61-year-old male who presents to clinic with ongoing left knee pain due to advanced osteoarthritis. He has failed conservative measures and has therefore, elected to proceed with a left total knee arthroplasty on 02/25/[address] López. PAST MEDICAL HISTORY: Diabetes, hypertension, congestive heart failure, obesity , chronic back pain. PAST SURGICAL HISTORY: Tonsillectomy and cardiac catheterization. MEDICATIONS: 1. Cephalexin 500 mg 1 by mouth 4 times a day x7 days. 2. Coumadin 2 mg take 1 to 3 by mouth, take as directed. 3. Percocet 5/325, 1 to 2 tabs every 4 to 6 hours as needed for pain. 4. Stool softener 100 mg, take 1 by mouth 3 times a day. 5. Lisinopril 40 mg, 1 by mouth every day. 6. Furosemide 80 mg, 1 by mouth every day. 7. Potassium citrate 10 mEq, 1 by mouth twice a day. 8. Metformin 1000 mg, 1 by mouth twice a day. 9. Diclofenac sodium 75 mg, take 1 tablet twice a day with food. 10. Gabapentin 300 mg 1 by mouth at bedtime. 11. Vitamin D3 2000 units, 1 by mouth every day. 12. Tramadol HCl 50 mg 1 tablet a day as needed. 13. Metoprolol tartrate 100 mg, take 1 by mouth 3 times a day. 14. Lantus. ALLERGIES: No known drug allergies. FAMILY HISTORY: Denies pertinent family history. SOCIAL HISTORY: He is a 61-year-old male who lives alone. He denies tobacco or drug use. He reports occasional alcohol consumption. REVIEW OF SYSTEMS: A 14-point review of systems was reviewed with patient, positive for diabetes. Denies history of DVT, PE, problems with anesthesia, hep C, HIV, or bleeding disorder. PHYSICAL EXAMINATION GENERAL: A well-developed, well-nourished 61-year-old male in acute distress. Alert and oriented x3. VITAL SIGNS: Height 69, weight 297. Pulse 92, blood pressure 132/85, temperature 98.7. BMI 43.9. HEENT: Normocephalic, atraumatic. PERRLA. NECK: Supple. Throat clear. CARDIO: Regular rate and rhythm. S1, S2. No murmurs, gallops, rubs. No edema. PULMONARY: Lungs clear to auscultation bilaterally. No wheezing, rhonchi, or rales. ABDOMEN: Positive bowel sounds. Soft, nontender. NEUROLOGIC: Alert and oriented x3. Cranial nerves grossly intact. Sensation intact to light touch. MUSCULOSKELETAL: Left lower extremity, skin is intact. Moderate joint effusion. Tenderness over the medial and lateral joint line. Range of motion from 10 to 110 degrees. +5/5 lower extremity strength. +2 dorsalis pedis pulse. Sensation is intact to light touch distally. STUDIES: Multiple views of x-rays of the left knee reveal severe osteoarthritis. IMPRESSION: Severe left knee osteoarthritis. PLAN/RECOMMENDATIONS: The patient is scheduled to undergo a left total knee arthroplasty with Dr. López on 02/25/17. Dr. López discussed the risks and benefits of the surgery and all his questions were answered at today's visit. The patient will be on Coumadin for DVT prophylaxis, Percocet for pain and Colace for constipation prevention after surgery. He will follow up with Dr. López 10 to 14 days after surgery. INOCENTE ROB [id number]/[facility] #: [id number] MTDD
[~2017-02-25 07:32] MED LIST changes: +Buffered Lidocaine 0.9% SYRIN* 5 ML/SYR SYRINGE INTRADERM ONE; -Buffered Lidocaine 1% SYRIN* 5 ML/SYR SYRINGE INTRADERM ONE; -Buffered Lidocaine 1% SYRIN* 5 ML/SYR SYRINGE ONE; -Famotidine IV* 10 MG/ML 2 ML (20 mg) ONE; +Morphine INJ* 4 MG/ML 1 ML SYRINGE IV PRN; +PROCHLORPERAZINE INJ 5 MG/ML 2 ML VIAL IV PRN; +fentaNYL* 50 MCG/ML 2 ML VIAL (100 MCG VIAL) IV PRN; +oxyCODONE/Acetamin 5/325 MG* TAB PO PRN
[2017-02-25] MEDS ORDERED: ceFAZolin 2 GM PREMIX(*) 2 GM/50 ML BAG IVPB ONE (07:55)
[2017-02-25] MEDS ORDERED: Famotidine IV* 10 MG/ML 2 ML (20 mg) ONE (07:55)
[2017-02-25] MEDS ORDERED: Midazolam* 1 MG/ML 5 ML VIAL (5 MG) ONE ×2 (08:23→08:50)
[2017-02-25] MEDS ORDERED: KETAMINE HCL* 50 MG/ML 10 ML VIAL ONE (08:23)
[2017-02-25] MEDS ORDERED: fentaNYL* 50 MCG/ML 2 ML VIAL (100 MCG VIAL) ONE (08:23)
[2017-02-25] MEDS ORDERED: Morphine PF AMP (0.5MG/ML)* 5 MG/10 ML AMP ONE (08:50)
[2017-02-25] MEDS ORDERED: ceFAZolin 1 GM in Dextrose (*) 1 GM/50 ML BAG IVPB ONE (09:06)
[2017-02-25] MEDS ORDERED: Ondansetron INJ* 2 MG/ML VIAL IV PRN ×2 (10:16→12:12)
[2017-02-25] MEDS ORDERED: Nalbuphine* 20 MG/ML 1 ML VIAL IV PRN (10:16)
[2017-02-25] MEDS ORDERED: Lactated Ringers 500 ml BAG* 500 ML IV PRN (10:16)
[2017-02-25] MEDS ORDERED: Hetastarch in NS* 200 ML IV PRN (10:16)
[2017-02-25] MEDS ORDERED: PROCHLORPERAZINE INJ 5 MG/ML 2 ML VIAL IV PRN (10:16)
[2017-02-25] MEDS ORDERED: EPHEDrine (Pressors)* 50 MG/ML VIAL IV PUSH PRN (10:16)
[2017-02-25] MEDS ORDERED: Propofol* 500 MG/50 ML BTL ONE (10:33)
[2017-02-25] MEDS ORDERED: Lidocaine 2% PF * 5 ML VIAL ONE (10:33)
[2017-02-25] MEDS ORDERED: Bupivacaine 0.5% SDV PF* 30 ML VIAL ONE (10:33)
[2017-02-25] MEDS ORDERED: Phenylephrine INJ* 10 MG/ML 1 ML VIAL (10 MG) ONE (10:33)
[2017-02-25] MEDS ORDERED: PROCHLORPERAZINE INJ 5 MG/ML 2 ML VIAL ONE (10:34)
[2017-02-25] MEDS ORDERED: Ropivacaine 0.2% EPIDURAL* 200 MG/100 ML BAG EPIDURAL SCH (11:00)
[2017-02-25] MEDS ORDERED: Ropivacaine 0.2% EPIDURAL* 200 MG/100 ML BAG EPIDURAL ONE (11:35)
[2017-02-25] MEDS ORDERED: oxyCODONE TAB* 5 MG TAB PO PRN (12:12)
[2017-02-25] MEDS ORDERED: Bisacodyl SUPP* 10 MG SUPP PR PRN (12:12)
[2017-02-25] MEDS ORDERED: Acetaminophen TAB* 325 MG PO PRN (12:12)
[2017-02-25] MEDS ORDERED: Morphine INJ* 2 MG/ML 1 ML SYRINGE IV PRN (12:12)
[2017-02-25] MEDS ORDERED: Polyethylene Glycol 3350* 17 GM PACKET PO PRN (12:12)
[2017-02-25] MEDS ORDERED: diPHENhydraMINE IV* 50 MG/ML 1 ml VIAL (BENADRYL) IV PRN (12:12)
[2017-02-25] MEDS ORDERED: oxyCODONE/Acetamin 5/325 MG* TAB PO PRN ×2 (12:12)
[2017-02-25] MEDS ORDERED: traMADol TAB* 50 MG PO PRN (12:22)
[2017-02-25] MEDS ORDERED: Nystatin TOP POWDER* 15 GM BTL TOPICAL PRN (12:22)
--- NOTE | 2017-02-25 13:10 | RAD ---
HISTORY: Postop left knee replacement COMPARISONS: November 13, 2016 VIEWS: 2, Frontal and lateral views of the left knee FINDINGS: BONE DENSITY: Normal. BONES: The patient is status post left knee arthroplasty. There is no hardware failure or osteolysis. JOINTS: The patient is status post left knee arthroplasty ALIGNMENT: There is no dislocation. SOFT TISSUES: Unremarkable. OTHER FINDINGS: There is post surgical change to the soft tissues. IMPRESSION: STATUS POST LEFT KNEE ARTHROPLASTY
[2017-02-25] MEDS ORDERED: Dextrose 50% Syringe 50 ML* 25 GM/50 ML SYRINGE IV PUSH PRN (13:18)
[2017-02-25] MEDS ORDERED: Metoprolol Tartrate TAB* 100 MG TAB PO SCH (14:00)
[2017-02-25] MEDS: Metoprolol Tartrate TAB* 100 MG TAB PO SCH ×3 (15:22→23:45)
[2017-02-25] MEDS: oxyCODONE/Acetamin 5/325 MG* TAB PO PRN (15:49)
[2017-02-25] MEDS ORDERED: Naloxone* 0.4 MG/ML 1 ML VIAL IV PRN (16:34)
[2017-02-25] MEDS ORDERED: Warfarin TAB(*) 6 MG PO ONE (17:00)
--- NOTE | 2017-02-25 17:10 | CONS ---
CC: Dr. Meeks; Dr. Roblero; Dr. López * CONSULTATION REPORT: DATE OF CONSULT: PRIMARY CARE PROVIDER: Dr. Meeks and Dr. Roblero. ATTENDING PHYSICIAN WHILE IN THE HOSPITAL: Alex Veras MD (report dictated by Connor Maradiaga NP). REQUESTING PHYSICIAN FOR CONSULTATION: Dr. López. REASON FOR MEDICAL CONSULTATION: Evaluation and medical management of comorbid medical conditions. HISTORY OF PRESENT ILLNESS: Mr. Domínguez is a 61-year-old male patient. He does carry a history of nonobstructive coronary artery disease. He also has a history of CHF, arthritis, lung nodules, MARCO, hypertension, diabetes, chronic back pain, neuropathy, and obesity. He comes into the orthopedic service today for an elective left total knee replacement. He underwent a procedure. He was here back in January for the procedure, but that was canceled due to erythema and lower extremity swelling, thought secondary to cellulitis or possibly allergic reaction to CT dye. The erythema and swelling did improve. He was rescheduled for today. He underwent a procedure. He was evaluated in the PACU. He says he is feeling well. He denies having any chest pain or shortness of breath. He states he feels drowsy. He denies any nausea. There has been no vomiting. He states his pain is well controlled. He denies feeling lightheaded or dizzy, but because of his extensive medical history, we are asked to evaluate in consult. PAST MEDICAL HISTORY: Significant for, 1. Diabetes. 2. Hypertension. 3. CHF. 4. Chronic back pain. 5. Neuropathy. 6. MARCO. 7. Obesity. 8. Nonobstructive mild coronary artery disease. 9. Lung nodules. PAST SURGICAL HISTORY: 1. He has had a heart catheterization. 2. Tonsillectomy. 3. Now he has had a left total knee replacement. HOME MEDICATIONS: According to the preop list includes: 1. Prednisone 40 mg daily. Last taken on the 2nd which does appear like he is no longer taking. 2. Percocet 1 tablet p.o. every 4 hours as needed. 3. Metformin 1000 mg p.o. b.i.d. 4. Tramadol 50 mg p.o. b.i.d. as needed. 5. Potassium 10 mEq p.o. b.i.d. 6. Nystatin 1 application topically b.i.d. as needed. 7. Metoprolol 100 mg p.o. t.i.d. 8. Lisinopril 40 mg daily. 9. Lantus 30 units subcu q.a.m. 10. Gabapentin 300 mg daily. 11. Lasix 80 mg daily. 12. Colace 100 mg p.o. daily as needed. 13. Diclofenac 75 mg p.o. b.i.d. as needed. 14. Clonidine 0.2 mg every 8 hours as needed. 15. Vitamin D3 2000 units p.o. daily. 16. Keflex 500 mg p.o. t.i.d., that was last taken on the . ALLERGIES TO MEDICATIONS: Include CT DYE. FAMILY HISTORY: His mother had a history of ischemic colitis and father had a history of Parkinson's and hypertension. SOCIAL HISTORY: He does not smoke. He occasionally drinks alcohol. Surrogate decision maker is his brother. PHYSICAL EXAM: Vital Signs: Blood pressure 114/58, pulse 62, respirations 22, O2 sat 98%, temperature 98.1. General: At this time, Mr. Domínguez is a 61-year- old male patient. He is morbidly obese. He is sitting in the PACU bed. He does not appear to be in any acute distress. HEENT: Head is atraumatic, normocephalic. Eyes: EOMs are intact. Sclerae anicteric, not pale. Neck: Supple. Throat: Oral mucosa appears to be moist. No oropharyngeal erythema. Heart: Sounds S1, S2. Regular rate and rhythm. No murmurs, rubs, or gallops. Lungs were clear to auscultation bilaterally. No wheezes, rales, or rhonchi. Abdomen was soft, flat, nontender. Bowel sounds were hypoactive. Extremities : Pulses were 2+ throughout. He is able to move his upper extremity with 5/5 strength, his left lower extremity is in an Julien bandage and wrapped the operative leg, but distal CSM checks are intact. Neurologically, he is little drowsy, but he awakens. He is alert. He is oriented x3. His tongue is midline. Twist Packer are equal. Speech is clear. No gross focal deficits. His skin is intact with the exception he has an incision to the left knee which is covered with an Julien dressing. Hemovac is intact. DIAGNOSTIC STUDIES/LAB DATA: Preop WBC of 14.8, RBC of 4.14, hemoglobin of 13.2 , hematocrit of 39, platelet count 436. INR was 1.03. Sodium 130, potassium 4.9, chloride of 94, bicarb 25, BUN 20, creatinine 1.13, glucose of 184. Preop urine showed 1+ protein, 1+ blood, 2+ rbc. He had preop cardiac catheterization done in December of this year, which again showed a per the report, patient with 20%-30% noncritical disease at the first diagonal branch and his EF was previously reported at 40%. He also did have a preop EKG, which is normal sinus rhythm, rate of 53, no ST elevations or T-wave inversions. Preop chest x-ray done on the , which showed no evidence of acute findings, possible mediastinal mass. Recommend a CT of the chest. Old medical records were reviewed. ASSESSMENT AND PLAN: Mr. Domínguez is a 61-year-old male patient with multiple medical problems, coming into the Dr. López's service today for elective left total knee. We are asked to evaluate in consult. Recommendations at this point are: 1. Status post left total knee replacement. Defer the management to Dr. López and team. 2. Diabetes mellitus, placed on lispro sliding scale. In addition to this, we will also continue his Lantus. 3. Hypertension. Hold his medications with the exception of his metoprolol. I have written for hold parameters for that. 4. History of congestive heart failure. Holding the Lasix in the immediate postoperative period. We will diurese him as needed. 5. Chronic back pain and neuropathy. Continue his meds as prescribed. He does have an epidural in place. 6. Obstructive sleep apnea. I would recommend checking continuous pulse ox for the first 24 hours after the procedure. 7. Coronary artery disease. Continue his beta-yenni for the time being. 8. History of lung nodules. Follow with his primary. 9. History of arthritis. Follow with his primary. 10. Deep vein thrombosis prophylaxis. I will defer that to his primary team. 11. Code status. Full code. 12. Fluids, electrolytes and nutrition. He can have a heart healthy diet. TIME SPENT: Time spent on the consult was 60 minutes, greater than half the time was spent [id number] with the patient obtaining my history and physical, the other half the time was spent going over the plan of care with the patient and implementing the plan of care. I did discuss the plan of care with my attending, Dr. Veras, who is in agreement. CONNOR MARADIAGA, LONA [id number]/[facility] #: [id number] FRANK
[2017-02-25] MEDS: ceFAZolin VIAL(*) 1 GM in NS 0.9% 50 ML* 50 ML IVPB SCH (18:09)
[2017-02-25] MEDS: Insulin LISPRO* 1 UNITS UNIT SUBCUT SCH (18:09)
[2017-02-25] MEDS ORDERED: Potassium Chlor TAB* 10 MEQ TAB.ER PO SCH (21:00)
[2017-02-25] MEDS ORDERED: metFORMIN* 1,000 MG TAB PO SCH (21:00)
[2017-02-25] MEDS: Magnesium Hydroxide LIQ* 30 ML UDC PO SCH (22:46)
[2017-02-25] MEDS: Docusate CAP* 100 MG PO SCH (22:46)
[2017-02-25] MEDS: Gabapentin CAP(*) 300 MG PO SCH (22:48)
[2017-02-26 00:35] LABS: Hematocrit 32 % (42-52); Hemoglobin 10.9 g/dl (14.0-18.0); Mean Corpuscular HGB Conc 34 g/dl (31-36); Mean Corpuscular Hemoglobin 31 pg (27-31); Mean Corpuscular Volume 93 fL (80-94); Mean Platelet Volume 9 um3 (7.4-10.4); Red Cell Distribution Width 13 % (10.5-15); White Blood Count 12.6 10^3/ul (3.5-10.8)
[2017-02-26 00:46] LABS: BUN/Creatinine Ratio 17.3 (8-20); Calcium 9.1 mg/dL (8.6-10.3); EGFR African American 58.1 (>60); EGFR Non-African American 45.2 (>60); Potassium 4.4 mmol/L (3.5-5.0)
[2017-02-26] MEDS: ceFAZolin VIAL(*) 1 GM in NS 0.9% 50 ML* 50 ML IVPB SCH ×2 (02:02→10:01)
[2017-02-26] MEDS: oxyCODONE/Acetamin 5/325 MG* TAB PO PRN ×5 (04:33→21:37)
[2017-02-26] MEDS ORDERED: Ondansetron INJ* 2 MG/ML VIAL IV PRN (06:00)
[2017-02-26] MEDS ORDERED: oxyCODONE/Acetamin 5/325 MG* TAB PO PRN (06:00)
[2017-02-26] MEDS ORDERED: Morphine INJ* 2 MG/ML 1 ML SYRINGE IV PRN (06:00)
[2017-02-26] MEDS ORDERED: diPHENhydraMINE IV* 50 MG/ML 1 ml VIAL (BENADRYL) IV PRN (06:00)
[2017-02-26] MEDS ORDERED: oxyCODONE TAB* 5 MG TAB PO PRN (06:00)
[2017-02-26 06:44] LABS: Hematocrit 30 % (42-52); Hemoglobin 10.1 g/dl (14.0-18.0); Mean Corpuscular HGB Conc 33 g/dl (31-36); Mean Corpuscular Hemoglobin 31 pg (27-31); Mean Corpuscular Volume 93 fL (80-94); Mean Platelet Volume 8 um3 (7.4-10.4); Red Blood Count 3.28 10^6/ul (4.0-5.4); Red Cell Distribution Width 13 % (10.5-15); White Blood Count 12.3 10^3/ul (3.5-10.8)
[2017-02-26 06:53] LABS: BUN/Creatinine Ratio 19.7 (8-20); Calcium 8.7 mg/dL (8.6-10.3); EGFR African American 64.8 (>60); EGFR Non-African American 50.4 (>60); Potassium 4.2 mmol/L (3.5-5.0)
--- NOTE | 2017-02-26 07:31 | PN ---
Progress Note - Progress Note Date of Service: 02/26/17 SOAP: Subjective: Pt. reports back pain overnight. Fever reported overnight. Objective: LLE - drain removed, tip intact with 300 ss drainage. distally no edema. +df/ pf, full sens lt, 2+ dp pulse. Vital Signs: Temp Pulse Resp BP Pulse Ox 98.7 F 83 16 117/58 99 02/26/17 03:49 02/26/17 03:49 02/26/17 06:33 02/26/17 03:49 02/26/17 03:49 Laboratory Results - last 24 hr 02/25/17 02/25/17 02/25/17 08:03 12:18 17:07 WBC RBC Hgb Hct MCV MCH MCHC RDW Plt Count MPV Neut % (Auto) Lymph % (Auto) Stearns % (Auto) Eos % (Auto) Baso % (Auto) Absolute Neuts (auto) Absolute Lymphs (auto) Absolute Monos (auto) Absolute Eos (auto) Absolute Basos (auto) Absolute Nucleated RBC Nucleated RBC % INR (Anticoag Therapy) Sodium Potassium Chloride Carbon Dioxide Anion Gap BUN Creatinine Est GFR ( Amer) Est GFR (Non-Af Amer) BUN/Creatinine Ratio Glucose POC Glucose (mg/dL) 157 H 135 H 158 H Lactic Acid Calcium 02/26/17 02/26/17 02/26/17 00:10 00:10 00:10 WBC 12.6 H RBC 3.50 L Hgb 10.9 L Hct 32 L MCV 93 MCH 31 MCHC 34 RDW 13 Plt Count 391 MPV 9 Neut % (Auto) 80.3 Lymph % (Auto) 9.7 L Stearns % (Auto) 8.3 Eos % (Auto) 0.9 Baso % (Auto) 0.8 Absolute Neuts (auto) 10.1 H Absolute Lymphs (auto) 1.2 Absolute Monos (auto) 1.1 H Absolute Eos (auto) 0.1 Absolute Basos (auto) 0.1 Absolute Nucleated RBC 0 Nucleated RBC % 0 INR (Anticoag Therapy) Sodium 129 L Potassium 4.4 Chloride 94 L Carbon Dioxide 28 Anion Gap 7 BUN 27 H Creatinine 1.56 H Est GFR ( Amer) 58.1 Est GFR (Non-Af Amer) 45.2 BUN/Creatinine Ratio 17.3 Glucose 168 H POC Glucose (mg/dL) Lactic Acid 1.2 Calcium 9.1 02/26/17 02/26/17 02/26/17 06:08 06:08 06:08 WBC 12.3 H RBC 3.28 L Hgb 10.1 L Hct 30 L MCV 93 MCH 31 MCHC 33 RDW 13 Plt Count 383 MPV 8 Neut % (Auto) 77.8 Lymph % (Auto) 10.5 L Stearns % (Auto) 10.3 H Eos % (Auto) 0.8 Baso % (Auto) 0.6 Absolute Neuts (auto) 9.6 H Absolute Lymphs (auto) 1.3 Absolute Monos (auto) 1.3 H Absolute Eos (auto) 0.1 Absolute Basos (auto) 0.1 Absolute Nucleated RBC 0.01 Nucleated RBC % 0.1 INR (Anticoag Therapy) 1.45 H Sodium 129 L Potassium 4.2 Chloride 95 L Carbon Dioxide 27 Anion Gap 7 BUN 28 H Creatinine 1.42 H Est GFR ( Amer) 64.8 Est GFR (Non-Af Amer) 50.4 BUN/Creatinine Ratio 19.7 Glucose 152 H POC Glucose (mg/dL) Lactic Acid Calcium 8.7 Assessment: 61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
[2017-02-26] MEDS: Metoprolol Tartrate TAB* 100 MG TAB PO SCH ×3 (08:25→21:36)
[2017-02-26] MEDS: Docusate CAP* 100 MG PO SCH ×2 (08:25→22:17)
[2017-02-26] MEDS: Magnesium Hydroxide LIQ* 30 ML UDC PO SCH ×2 (08:26→22:17)
[2017-02-26] MEDS: Vitamin THERAPEUTIC TAB PO SCH (08:26)
[2017-02-26] MEDS: Insulin LISPRO* 1 UNITS UNIT SUBCUT SCH ×3 (08:27→17:13)
[2017-02-26] MEDS: Insulin GLARGINE(*) 1 UNITS UNIT SUBCUT SCH (08:27)
[2017-02-26] MEDS ORDERED: Furosemide TAB* 40 MG PO SCH (09:00)
[2017-02-26] MEDS ORDERED: NON FORMULARY MED* (Lisinopril [Lisinopril 40 Mg-] 40 MG) PO SCH (09:00)
[2017-02-26] MEDS: Enoxaparin(*) 40 MG/0.4 ML SYR SUBCUT SCH (10:01)
--- NOTE | 2017-02-26 11:36 | OP ---
OPERATIVE NOTE: DATE OF OPERATION: 02/25/17 DATE OF : 51 ATTENDING SURGEON: Angela López MD CUSTOM HOME INSTALLER: INOCENTE Paris Ms. did help throughout the procedure with preparation of the leg, wound retraction, manipulation of the knee, and wound closure. PRE-OP DIAGNOSIS: Severe end-stage degenerative osteoarthritis of the left knee joint joint. POST-OP DIAGNOSIS: Severe end-stage degenerative osteoarthritis of the left knee joint joint. OPERATIVE PROCEDURE: Left total knee arthroplasty. TOURNIQUET TIME: 55 minutes. EBL: 250 cc. HARDWARE USED: This is Howard and Nephew cemented total knee hardware. For the cement, two packages of Simplex bone cement. For the femur, a size 6 left posterior stabilized Legion Oxinium femoral component. For the tibia, a size 6 left tibial base plate Brianna II. For the insert, an 11-mm posterior stabilized articular insert, size 5-6. For the patella, a 32-mm, 3-peg All Poly patella. SPECIMEN: Bone and cartilage from the left knee joint sent to pathology. BRIEF HISTORY/INDICATIONS: Mr. Domínguez is a 61-year-old gentleman with years of increasingly severe left knee pain. He failed conservative treatment with the antiinflammatories, pain medication, intraarticular injection, and physical therapy. Radiographs confirmed [id number] arthritis of the left knee. He elected to undergo a left total knee arthroplasty due to continued pain and decreased quality of life. Informed consent was obtained from the patient. He understood the risks of the surgery included but were not limited to bleeding, infection, damage to nearby structures, continued pain, need for further surgery , intraoperative fracture, nerve palsy, hardware failure or loosening, knee stiffness, loss of motion, stroke, heart attack, blood clot, and . He wished to proceed. INTRAOPERATIVE FINDINGS: Intraoperatively, the patient was noted to have severe end-stage arthritis with complete loss of cartilage on the medial and patellofemoral compartments. Extensive osteophyte formation was noted. 10- degree flexion contracture at the beginning of the case was noted. Postop range of motion with full extension to 130 degrees of flexion. DESCRIPTION OF PROCEDURE: Mr. Domínguez was identified in the preanesthesia unit. Left lower extremity was marked as the correct operative site. Informed consent was signed and placed in the chart. The patient was taken to the operating room and placed under spinal anesthesia. A Hough catheter was placed. The tourniquet was placed on the left thigh. Left lower extremity was prepped and draped in the usual sterile fashion. Preop time-out was made to correctly identify the patient's side and site. Appropriate perioperative antibiotics were given within 1 hour of incision. Tourniquet was then placed and a total tourniquet time for this procedure was 55 minutes. A 14-cm midline incision was made with a 10-blade and carried down to the extensor mechanism. A new 10-blade was used to make a standard medial parapatellar arthrotomy. The patella was subluxed laterally. Electrocautery was used to subperiosteally elevate the soft tissue off the superomedial tibia to the mid sagittal plane. An osteophyte along the infrapatellar fat pad was carefully removed. There was extensive osteophyte formation along the medial tibia and this was removed. The knee was flexed up. The anterior horn of the lateral meniscus was sharply released. There was no ACL. A drill was used to enter the distal femur. The intramedullary distal femoral cutting guide was pinned into position. Oscillating saw was used to make the appropriate distal femoral cut. External rotation guide was pinned down the distal femur. The distal femur was sized to a size 6. A size 6 multi-cutting jig was pinned on the distal femur. Oscillating saw was used to make the appropriate chamfer cuts. Any bony fragments were carefully removed. The PCL was completely released. The tibia was subluxed anteriorly. Extramedullary tibial cutting guide was pinned on the proximal tibia. Oscillating saw was used to make the proximal tibial cut, perpendicular to the mechanical axis of the tibia. The bone was carefully removed. The knee was brought out into full extension. The spacer block had good fit. There was good medial and lateral ligamentous balancing. Flexion and extension gaps were well balanced. The knee was flexed up. Lamina clinical staff rn was placed both medially and laterally. Any remaining meniscus was carefully removed with electrocautery. Posterior osteophytes were carefully removed. A size 6 left femoral component was impacted onto the distal femur. This had excellent stability. The box for the posterior stabilized implant was prepared using a reamer and box cut osteotome. A size 6 tibial trial and an11- mm insert trial were chosen. The knee was taken through a range of motion. The knee had full extension to 130 degrees of flexion. Good patellofemoral tracking. The patella was everted. 9 mm of patellar bone and cartilage were carefully removed from the patella using an oscillating saw. The patella was sized to a size 32. Three-peg holes were drilled through the size 32 guide. A 32 trial patella was placed and the knee was taken through a range of motion and there was satisfactory patellofemoral tracking. All trials were carefully removed. The tibia was subluxed anteriorly and sized to a size 6. Proximal tibia was prepared using a size 6 keel punch. All bony cut surfaces were copiously irrigated with sterile saline and dried. Final implants were cemented into place starting with the tibia, followed by the femur , and last the patella. Tourniquet was turned down and an 11-mm insert trial was placed while the knee was brought out into full extension. The cement was allowed to fully cure. The knee was copiously irrigated with sterile saline. Once the cement had fully cured, the insert trial was removed. Any excess cement was carefully removed from around the capsule and hardware. Electrocautery was used to obtain meticulous hemostasis. Final implant chosen was an 11-mm posterior stabilized articular insert. This was locked into position on the tibial tray. Stability of the insert was checked and rechecked and noted to be stable. The knee was copiously irrigated with sterile saline. The extensor mechanism was closed over a medium Hemovac drain using interrupted #1 Vicryls. The rest of the incision was closed in a layered fashion using 0 and 2-0 Vicryls. Skin was closed using running 3-0 nylon suture. Xeroform, 4x4s, and Webril were used to cover the incision. Julien wrap and cold pack were placed over this. The patient's anesthesia was reversed without difficulty. He was taken to the PACU in stable condition. Intended weightbearing will be weightbearing as tolerated. Intended DVT prophylaxis will be Coumadin with a Lovenox bridge. [id number]/[facility] #: [id number] FRANK
[2017-02-26] MEDS ORDERED: Warfarin TAB(*) 4 MG PO ONE (17:00)
[2017-02-26] MEDS: Gabapentin CAP(*) 300 MG PO SCH (21:36)
[2017-02-27] MEDS: oxyCODONE/Acetamin 5/325 MG* TAB PO PRN ×5 (04:15→22:43)
[2017-02-27 07:42] LABS: Hematocrit 32 % (42-52); Hemoglobin 10.5 g/dl (14.0-18.0)
[2017-02-27] MEDS: Metoprolol Tartrate TAB* 100 MG TAB PO SCH ×3 (08:39→21:13)
[2017-02-27] MEDS: Magnesium Hydroxide LIQ* 30 ML UDC PO SCH ×2 (08:39→21:07)
[2017-02-27] MEDS: Docusate CAP* 100 MG PO SCH ×2 (08:39→21:13)
[2017-02-27] MEDS: Vitamin THERAPEUTIC TAB PO SCH (08:40)
[2017-02-27] MEDS: Insulin GLARGINE(*) 1 UNITS UNIT SUBCUT SCH (08:42)
[2017-02-27] MEDS: Insulin LISPRO* 1 UNITS UNIT SUBCUT SCH ×3 (08:44→18:14)
[2017-02-27 08:49] LABS: White Blood Count 14.8 10^3/ul (3.5-10.8)
--- NOTE | 2017-02-27 09:14 | PN ---
Subjective Date of Service: 02/27/17 Interval History: Pt is feeling ok currently. He is worried about his R knee in that it is painful and weaker than it had been. Additionally he is c/o spasms of the L LE. He denies any dysuria, cough, sputum, diarrhea. Objective Active Medications: Acetaminophen (Tylenol Tab*) 650 mg PO Q4H PRN PRN Reason: PAIN OR TEMPERATURE Last Admin: 02/25/17 22:45 Dose: 650 mg Bisacodyl (Dulcolax Supp*) 10 mg NC DAILY PRN PRN Reason: constipation Dextrose (D50w Syringe 50 Ml*) 12.5 gm IV PUSH .FOR FS < 60 - SS PRN PRN Reason: FS < 60 Diphenhydramine HCl (Benadryl Iv*) 25 mg IV Q6H PRN PRN Reason: itching or sleep Docusate Sodium (Colace Cap*) 100 mg PO BID [facility] Last Admin: 02/27/17 08:39 Dose: 100 mg Enoxaparin Sodium (Lovenox(*)) 40 mg SUBCUT Q24H [facility] Last Admin: 02/26/17 10:01 Dose: 40 mg Gabapentin (Neurontin Cap(*)) 300 mg PO BEDTIME [facility] Last Admin: 02/26/17 21:36 Dose: 300 mg Insulin Glargine (Lantus(*)) 32 units SUBCUT QAM JULIA Insulin Human Lispro (Humalog*) 0 units SUBCUT AC [facility] PRN Reason: Protocol Last Admin: 02/27/17 08:44 Dose: 3 units Lactulose (Lactulose*) 30 ml PO Q6H PRN PRN Reason: constipation Magnesium Hydroxide (Milk Of Magnesia Liq*) 30 ml PO BID [facility] Last Admin: 02/27/17 08:39 Dose: Not Given Metoprolol Tartrate (Lopressor Tab*) 100 mg PO TID [facility] Last Admin: 02/27/17 08:39 Dose: 100 mg Morphine Sulfate (Morphine Inj (Syringe)*) 2 mg IV Q2H PRN PRN Reason: PAIN - SEVERE Multivitamins (Theragran Tab*) 1 tab PO DAILY [facility] Last Admin: 02/27/17 08:40 Dose: 1 tab Nystatin (Nystatin Top Powder*) 1 applic TOPICAL BID PRN PRN Reason: RASH Ondansetron HCl (Zofran Inj*) 4 mg IV Q6H PRN PRN Reason: nausea Oxycodone HCl (Roxycodone Tab*) 10 mg PO Q4H PRN PRN Reason: PAIN - MODERATE TO SEVERE Oxycodone/Acetaminophen (Percocet 5/325 Tab*) 1 tab PO Q4H PRN PRN Reason: PAIN - MILD TO MODERATE Oxycodone/Acetaminophen (Percocet 5/325 Tab*) 2 tab PO Q4H PRN PRN Reason: PAIN - MILD TO MODERATE Last Admin: 02/27/17 08:39 Dose: 2 tab Pharmacy Profile Note (Coumadin Daily Reminder*) 0 note FOLLOW UP 1700 JULIA Last Admin: 02/26/17 17:13 Dose: 1 note Polyethylene Glycol/Electrolytes (Miralax*) 17 gm PO DAILY PRN PRN Reason: Constipation Vital Signs 02/26/17 02/26/17 02/26/17 10:26 11:55 12:19 Temperature 97.8 F Pulse Rate 72 Respiratory 20 16 18 Rate Blood Pressure 146/82 (mmHg) O2 Sat by Pulse 100 Oximetry 02/26/17 02/26/17 02/26/17 13:43 14:19 15:18 Temperature 97.9 F 98.3 F Pulse Rate 74 71 Respiratory 19 20 20 Rate Blood Pressure 143/68 138/77 (mmHg) O2 Sat by Pulse 97 100 Oximetry 02/26/17 02/26/17 02/26/17 17:10 19:10 19:30 Temperature 100.7 F Pulse Rate 100 Respiratory 20 20 28 Rate Blood Pressure 162/81 (mmHg) O2 Sat by Pulse 98 Oximetry 02/26/17 02/26/17 02/26/17 19:35 21:34 21:35 Temperature 100.7 F 101.1 F Pulse Rate 100 103 Respiratory 28 26 26 Rate Blood Pressure 162/81 161/71 (mmHg) O2 Sat by Pulse 98 94 Oximetry 02/26/17 02/26/17 02/26/17 21:36 21:37 23:24 Temperature 100.4 F Pulse Rate 82 Respiratory 26 26 16 Rate Blood Pressure 144/65 (mmHg) O2 Sat by Pulse 93 Oximetry 02/26/17 02/27/17 02/27/17 23:36 04:06 04:15 Temperature 100.9 F Pulse Rate 109 Respiratory 16 16 18 Rate Blood Pressure 145/80 (mmHg) O2 Sat by Pulse 97 Oximetry 02/27/17 08:39 Temperature Pulse Rate Respiratory 16 Rate Blood Pressure (mmHg) O2 Sat by Pulse Oximetry Oxygen Devices in Use Now: None Appearance: Middle aged obese male sitting up in a recliner, NAD Eyes: No Scleral Icterus Ears/Nose/Mouth/Throat: Mucous Membranes Moist Respiratory: Symmetrical Chest Expansion and Respiratory Effort, Clear to Auscultation Cardiovascular: NL Sounds; No Murmurs; No JVD, RRR, No Edema Abdominal: NL Sounds; No Tenderness; No Distention Extremities: No Clubbing, Cyanosis Skin: No Rash or Ulcers, No Nodules or Sclerosis, - - R LE without any erythema , L LE in UMER wrap and cryo unit Neurological: - - pt initially appears alert but then drifts off to sleep very easily and needs to be awakend by light touch, this happens twice in my 10 minute evaluation/conversation with the patient Result Diagrams: 02/27/17 07:31 02/26/17 06:08 Microbiology and Other Data: Microbiology 02/26/17 02:13 Aerobic Blood Culture - Preliminary Blood Venous No Growth Day 1 Anaerobic Blood Culture - Preliminary No Growth Day 1 02/26/17 00:00 Aerobic Blood Culture - Preliminary Blood Venous No Growth Day 1 Anaerobic Blood Culture - Preliminary No Growth Day 1 02/25/17 15:15 Nasal Screen MRSA (PCR)(KIRSTEN) - Final Nasal Mrsa Negative Assess/Plan/Problems-Billing Mr Domínguez is a 61 yo M who has a h/o HTN, type II DM, MARCO and recent admission for B/L LE cellulitis who was admitted following an elective L total knee replacement. The hospitalist service was asked for medical co-management. - Patient Problems (1) Fever Current Visit: Yes Status: Acute Code(s): R50.9 - FEVER, UNSPECIFIED SNOMED Code(s): 006284665 Comment: Unclear what is driving the patient's fever. He gives no specific complaints and his exam does not reveal any concerning findings. Blood cultures were drawn yesterday but given his fever again overnight will check another set of blood cultures. Check pCXR and UA/C. (2) Status post total knee replacement, left Current Visit: Yes Status: Acute Code(s): Z96.652 - PRESENCE OF LEFT ARTIFICIAL KNEE JOINT SNOMED Code(s): 6095462087111 Comment: Management per orthopedics. (3) Hyponatremia Current Visit: Yes Status: Acute Code(s): E87.1 - HYPO-OSMOLALITY AND HYPONATREMIA SNOMED Code(s): 20926569 Comment: Will follow up Na level tomorrow. ? secondary to volume depletion. (4) MARCO (obstructive sleep apnea) Current Visit: Yes Status: Acute Code(s): G47.33 - OBSTRUCTIVE SLEEP APNEA ( ADULT) (PEDIATRIC) SNOMED Code(s): 88159202 Comment: Pt fell asleep twice in a very short period of time. Will check nocturnal desaturation study tonight. (5) HTN (hypertension) Current Visit: Yes Status: Acute Code(s): I10 - ESSENTIAL (PRIMARY) HYPERTENSION SNOMED Code(s): 97622581 Comment: BP is mildly elevated. Will add back lisinopril 20mg daily and monitor. WIll need to follow the creatinine as it is mildly elevated from his baseline. (6) DM2 (diabetes mellitus, type 2) Current Visit: Yes Status: Acute Comment: Sugars are currently under fair control. Will increase lantus to 32 units qAM and monitor his sugars. Metformin is currently being held. (7) DVT prophylaxis Current Visit: Yes Status: Acute Code(s): TFG8054 - SNOMED Code(s): 047435851 Comment: claude (8) Full code status Current Visit: Yes Status: Acute Code(s): Z78.9 - OTHER SPECIFIED HEALTH STATUS SNOMED Code(s): 554903694
[2017-02-27] MEDS: Enoxaparin(*) 40 MG/0.4 ML SYR SUBCUT SCH (09:54)
--- NOTE | 2017-02-27 10:09 | RAD ---
Indication: Evaluate for infiltrate. Single frontal view of the chest performed at 0930 hours was reviewed. Comparison is made with previous exam dated February 03, 2017. No mediastinal shift is noted. Heart is of normal size and configuration. Lung torres appear clear. IMPRESSION: NO ACTIVE CARDIOPULMONARY DISEASE IS NOTED.
--- NOTE | 2017-02-27 10:44 | PN ---
Progress Note - Progress Note Date of Service: 02/27/17 SOAP: Subjective: Pt states he is doing well. Pain controlled. Fever overnight. Denies CP/SOB, or calf pain Objective: WDWN NAD A&O x3 LLE- inc c/d/i no sign of infection, dressing changed, +DF/PF ankle, calf soft nt, NVI Vital Signs Temp Pulse Resp BP Pulse Ox 98.1 F 96 16 140/70 100 02/27/17 08:13 02/27/17 08:13 02/27/17 08:39 02/27/17 08:13 02/27/17 08:13 Laboratory Results - last 24 hr 02/26/17 02/26/17 02/27/17 11:54 17:00 07:31 WBC 14.8 H Hgb 10.5 L Hct 32 L INR (Anticoag Therapy) POC Glucose (mg/dL) 181 H 125 H 02/27/17 02/27/17 07:31 08:30 WBC Hgb Hct INR (Anticoag Therapy) 3.29 H POC Glucose (mg/dL) 181 H Assessment: POD 2 s/p Left TKA Plan: WBAT LLE- PT/OT cont pain mgmt DC lovenox hold coumadin appreciate hosp input Discharge to home tomorrow vs. SNF on Wednesday
[2017-02-27 16:28] LABS: Urine Bilirubin Negative (Negative); Urine Glucose Negative (Negative); Urine Nitrite Negative (Negative)
--- NOTE | 2017-02-27 17:12 | RAD ---
Indication: Bilateral upper extremity weakness. CT of the cervical spine was obtained in the axial plane. Sagittal and coronal reconstructed images were obtained. The skull base demonstrates no evidence of fracture. C1 ring is intact. No fracture is noted. At C2-C3, C3-C4 and C4-C5 disc spaces all well-preserved. No focal protrusion is identified. There is facet arthropathy noted at right C4-C5 facet joints. At C5-C6 disc space narrowing with spondylytic ridge flattening the thecal sac. Minimal broad-based protrusion is noted. No fracture is noted. At C6-C7 disc space narrowing is noted. Minimal broad-based protrusion is noted. Mild facet arthropathy is noted. At C7-T1 the disc space appears normal. Lung apices are unremarkable. Incidentally noted is a calcified nodule in the left lower pole of the thyroid which extends retrosternally. IMPRESSION: At C5-C6 and C6-C7 degenerative disc disease is noted. No fracture is identified. Calcified thyroid nodule left lobe of the thyroid.
[2017-02-27] MEDS: Diazepam TAB(*) 2 MG PO PRN (21:13)
[2017-02-27] MEDS: Gabapentin CAP(*) 300 MG PO SCH (21:13)
[2017-02-28] MEDS: oxyCODONE/Acetamin 5/325 MG* TAB PO PRN ×2 (05:22→11:08)
[2017-02-28] MEDS: Vitamin THERAPEUTIC TAB PO SCH (08:04)
[2017-02-28] MEDS: Metoprolol Tartrate TAB* 100 MG TAB PO SCH ×3 (08:04→20:09)
[2017-02-28] MEDS: Docusate CAP* 100 MG PO SCH ×2 (08:04→20:09)
[2017-02-28] MEDS: Insulin LISPRO* 1 UNITS UNIT SUBCUT SCH ×3 (08:07→18:13)
[2017-02-28] MEDS: Magnesium Hydroxide LIQ* 30 ML UDC PO SCH ×2 (08:16→20:10)
[2017-02-28 08:45] LABS: Hematocrit 31 % (42-52); Hemoglobin 10.2 g/dl (14.0-18.0); Mean Corpuscular HGB Conc 33 g/dl (31-36); Mean Corpuscular Hemoglobin 31 pg (27-31); Mean Corpuscular Volume 94 fL (80-94); Mean Platelet Volume 9 um3 (7.4-10.4); Red Blood Count 3.26 10^6/ul (4.0-5.4); Red Cell Distribution Width 13 % (10.5-15); White Blood Count 11.6 10^3/ul (3.5-10.8)
[2017-02-28 08:59] LABS: BUN/Creatinine Ratio 18.2 (8-20); Calcium 8.6 mg/dL (8.6-10.3); EGFR African American 112.5 (>60); EGFR Non-African American 87.5 (>60); Potassium 4.1 mmol/L (3.5-5.0)
[2017-02-28] MEDS ORDERED: Insulin GLARGINE(*) 1 UNITS UNIT SUBCUT SCH (09:00)
--- NOTE | 2017-02-28 10:45 | PN ---
Progress Note - Progress Note Date of Service: 02/28/17 SOAP: Subjective: Pt states that he is doing well. Some pain in the knee. Pain controlled with medication. Denies CP, SOB, F/C or calf pain. Working on ROM with PT. C/O CTS in bilat hands Objective: 61 y/o M WDWN, NAD, A&O x3 LLE- inc c/d/i, no sign infection, dressing changed, +PF/DF ankle, calf soft NT , +2 DP pulse, sensation intact Vital Signs Temp Pulse Resp BP Pulse Ox 98.9 F 96 16 130/68 96 02/28/17 07:53 02/28/17 07:53 02/28/17 07:53 02/28/17 07:53 02/28/17 07:53 Laboratory Results - last 24 hr 02/27/17 02/27/17 02/27/17 12:14 16:15 17:14 WBC RBC Hgb Hct MCV MCH MCHC RDW Plt Count MPV INR (Anticoag Therapy) Sodium Potassium Chloride Carbon Dioxide Anion Gap BUN Creatinine Est GFR ( Amer) Est GFR (Non-Af Amer) BUN/Creatinine Ratio Glucose POC Glucose (mg/dL) 170 H 117 H Calcium Urine Color Yellow Urine Appearance Clear Urine pH 6.0 Ur Specific Ullin 1.005 L Urine Protein Negative Urine Ketones Negative Urine Blood Negative Urine Nitrate Negative Urine Bilirubin Negative Urine Urobilinogen Negative Ur Leukocyte Esterase Negative Urine Glucose Negative 02/28/17 02/28/17 02/28/17 07:25 07:52 07:52 WBC 11.6 H RBC 3.26 L Hgb 10.2 L Hct 31 L MCV 94 MCH 31 MCHC 33 RDW 13 Plt Count 395 MPV 9 INR (Anticoag Therapy) 2.44 H Sodium Potassium Chloride Carbon Dioxide Anion Gap BUN Creatinine Est GFR ( Amer) Est GFR (Non-Af Amer) BUN/Creatinine Ratio Glucose POC Glucose (mg/dL) 144 H Calcium Urine Color Urine Appearance Urine pH Ur Specific Ullin Urine Protein Urine Ketones Urine Blood Urine Nitrate Urine Bilirubin Urine Urobilinogen Ur Leukocyte Esterase Urine Glucose 02/28/17 07:52 WBC RBC Hgb Hct MCV MCH MCHC RDW Plt Count MPV INR (Anticoag Therapy) Sodium 128 L Potassium 4.1 Chloride 94 L Carbon Dioxide 26 Anion Gap 8 BUN 16 Creatinine 0.88 Est GFR ( Amer) 112.5 Est GFR (Non-Af Amer) 87.5 BUN/Creatinine Ratio 18.2 Glucose 129 H POC Glucose (mg/dL) Calcium 8.6 Urine Color Urine Appearance Urine pH Ur Specific Ullin Urine Protein Urine Ketones Urine Blood Urine Nitrate Urine Bilirubin Urine Urobilinogen Ur Leukocyte Esterase Urine Glucose Assessment: POD 3 s/p L TKA Plan: Cont pain management WBAT LLE- cont PT/OT Medical mgmt per hospitalists Hold coumadin tonight If CTS continues to bother him consider night splint Probable discharge to [facility] bed for rehab Wednesday
--- NOTE | 2017-02-28 15:38 | PN ---
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 He denies any significant pain in the L knee. Objective Active Medications: Acetaminophen (Tylenol Tab*) 650 mg PO Q4H PRN PRN Reason: PAIN OR TEMPERATURE Last Admin: 02/25/17 22:45 Dose: 650 mg Bisacodyl (Dulcolax Supp*) 10 mg MS DAILY PRN PRN Reason: constipation Dextrose (D50w Syringe 50 Ml*) 12.5 gm IV PUSH .FOR FS < 60 - SS PRN PRN Reason: FS < 60 Diazepam (Valium Tab(*)) 2 mg PO Q8H PRN PRN Reason: SPASMS Last Admin: 02/27/17 21:13 Dose: 2 mg Diphenhydramine HCl (Benadryl Iv*) 25 mg IV Q6H PRN PRN Reason: itching or sleep Docusate Sodium (Colace Cap*) 100 mg PO BID [facility] Last Admin: 02/28/17 08:04 Dose: 100 mg Gabapentin (Neurontin Cap(*)) 300 mg PO BID [facility] Insulin Glargine (Lantus(*)) 35 units SUBCUT QAM [facility] Insulin Human Lispro (Humalog*) 0 units SUBCUT AC [facility] PRN Reason: Protocol Last Admin: 02/28/17 13:01 Dose: 3 units Lactulose (Lactulose*) 30 ml PO Q6H PRN PRN Reason: constipation Magnesium Hydroxide (Milk Of Magnesia Liq*) 30 ml PO BID [facility] Last Admin: 02/28/17 08:16 Dose: Not Given Metoprolol Tartrate (Lopressor Tab*) 100 mg PO TID [facility] Last Admin: 02/28/17 14:00 Dose: 100 mg Morphine Sulfate (Morphine Inj (Syringe)*) 2 mg IV Q2H PRN PRN Reason: PAIN - SEVERE Multivitamins (Theragran Tab*) 1 tab PO DAILY [facility] Last Admin: 02/28/17 08:04 Dose: 1 tab Nystatin (Nystatin Top Powder*) 1 applic TOPICAL BID PRN PRN Reason: RASH Ondansetron HCl (Zofran Inj*) 4 mg IV Q6H PRN PRN Reason: nausea Oxycodone HCl (Roxycodone Tab*) 10 mg PO Q4H PRN PRN Reason: PAIN - MODERATE TO SEVERE Oxycodone/Acetaminophen (Percocet 5/325 Tab*) 1 tab PO Q4H PRN PRN Reason: PAIN - MILD TO MODERATE Oxycodone/Acetaminophen (Percocet 5/325 Tab*) 2 tab PO Q4H PRN PRN Reason: PAIN - MILD TO MODERATE Last Admin: 02/28/17 11:08 Dose: 2 tab Pharmacy Profile Note (Coumadin Daily Reminder*) 0 note FOLLOW UP 1700 JULIA Last Admin: 02/27/17 18:14 Dose: Not Given Polyethylene Glycol/Electrolytes (Miralax*) 17 gm PO DAILY PRN PRN Reason: Constipation Vital Signs 02/27/17 02/27/17 02/27/17 15:34 18:19 19:09 Temperature 97.7 F 100.7 F Pulse Rate 74 108 Respiratory 20 16 21 Rate Blood Pressure 129/70 133/64 (mmHg) O2 Sat by Pulse 100 95 Oximetry 02/27/17 02/27/17 02/27/17 19:29 20:19 20:23 Temperature 99.3 F Pulse Rate 92 Respiratory 20 20 20 Rate Blood Pressure 124/69 (mmHg) O2 Sat by Pulse 93 Oximetry 02/27/17 02/27/17 02/27/17 21:13 22:43 23:13 Temperature Pulse Rate 92 Respiratory 20 18 20 Rate Blood Pressure 117/54 (mmHg) O2 Sat by Pulse 98 Oximetry 02/27/17 02/28/17 02/28/17 23:59 00:00 00:43 Temperature 98.8 F Pulse Rate 75 Respiratory 18 16 Rate Blood Pressure 125/68 (mmHg) O2 Sat by Pulse 91 92 Oximetry 02/28/17 02/28/17 02/28/17 03:50 05:22 07:22 Temperature 98.6 F Pulse Rate 89 Respiratory 18 18 18 Rate Blood Pressure 146/75 (mmHg) O2 Sat by Pulse 97 Oximetry 02/28/17 02/28/17 02/28/17 07:25 07:53 11:08 Temperature 98.9 F Pulse Rate 96 Respiratory 18 16 18 Rate Blood Pressure 130/68 (mmHg) O2 Sat by Pulse 96 Oximetry 02/28/17 02/28/17 11:37 13:08 Temperature 99.6 F Pulse Rate 78 Respiratory 16 18 Rate Blood Pressure 150/61 (mmHg) O2 Sat by Pulse 100 Oximetry Oxygen Devices in Use Now: None Appearance: Middle aged obese male sitting in a chair, NAD Eyes: No Scleral Icterus Ears/Nose/Mouth/Throat: Mucous Membranes Moist Respiratory: Symmetrical Chest Expansion and Respiratory Effort, Clear to Auscultation Cardiovascular: NL Sounds; No Murmurs; No JVD, RRR, No Edema Abdominal: NL Sounds; No Tenderness; No Distention Extremities: No Clubbing, Cyanosis Skin: No Rash or Ulcers, No Nodules or Sclerosis, - - L knee incision not inspected by myself Neurological: Alert and Oriented x 3 Result Diagrams: 02/28/17 07:52 02/28/17 07:52 Microbiology and Other Data: Microbiology 02/26/17 02:13 Aerobic Blood Culture - Preliminary Blood Venous No Growth Day 1 Anaerobic Blood Culture - Preliminary No Growth Day 1 02/26/17 00:00 Aerobic Blood Culture - Preliminary Blood Venous No Growth Day 1 Anaerobic Blood Culture - Preliminary No Growth Day 1 02/25/17 15:15 Nasal Screen MRSA (PCR)(KIRSTEN) - Final Nasal Mrsa Negative Assess/Plan/Problems-Billing Mr Domínguez is a 61 yo M who has a h/o HTN, type II DM, MARCO and recent admission for B/L LE cellulitis who was admitted following an elective L total knee replacement. The hospitalist service was asked for medical co-management. - Patient Problems (1) Fever Current Visit: Yes Status: Acute Code(s): R50.9 - FEVER, UNSPECIFIED SNOMED Code(s): 483092520 Comment: Last night the patient again developed fever but it was much shorter lived. Nothing has come of the BC, UA or CXR. Continue to hold Abx and monitor. (2) Status post total knee replacement, left Current Visit: Yes Status: Acute Code(s): Z96.652 - PRESENCE OF LEFT ARTIFICIAL KNEE JOINT SNOMED Code(s): 2989824614178 Comment: Management per orthopedics. (3) Hyponatremia Current Visit: Yes Status: Acute Code(s): E87.1 - HYPO-OSMOLALITY AND HYPONATREMIA SNOMED Code(s): 35274978 Comment: Na level improving. Follow intermittently. (4) MARCO (obstructive sleep apnea) Current Visit: Yes Status: Acute Code(s): G47.33 - OBSTRUCTIVE SLEEP APNEA ( ADULT) (PEDIATRIC) SNOMED Code(s): 55308906 Comment: Nocturnal desaturation study showed that he is <89% for >50min. Will start O2 2L while sleeping. Pt refuses to use CPAP stating he will never sleep if he has to use it. (5) HTN (hypertension) Current Visit: Yes Status: Acute Code(s): I10 - ESSENTIAL (PRIMARY) HYPERTENSION SNOMED Code(s): 56748032 Comment: BP is more elevated now. Lisinopril was inadvertently not restarted. Resume 40mg daily starting tomorrow. (6) DM2 (diabetes mellitus, type 2) Current Visit: Yes Status: Acute Comment: Increase lantus to 35 units SQ daily. Add back metformin. (7) DVT prophylaxis Current Visit: Yes Status: Acute Code(s): EDI5117 - SNOMED Code(s): 100690192 Comment: lovenox (8) Full code status Current Visit: Yes Status: Acute Code(s): Z78.9 - OTHER SPECIFIED HEALTH STATUS SNOMED Code(s): 375684790
[2017-02-28] MEDS: metFORMIN* 1,000 MG TAB PO SCH (18:13)
[2017-02-28] MEDS: Gabapentin CAP(*) 300 MG PO SCH (20:09)
[2017-02-28] MEDS: Diazepam TAB(*) 2 MG PO PRN (21:41)
[2017-03-01] MEDS: oxyCODONE/Acetamin 5/325 MG* TAB PO PRN ×3 (00:10→12:49)
[2017-03-01] MEDS: Diazepam TAB(*) 2 MG PO PRN (05:55)
[2017-03-01 07:30] LABS: Hematocrit 29 % (42-52); Hemoglobin 9.7 g/dl (14.0-18.0)
[2017-03-01] MEDS: Gabapentin CAP(*) 300 MG PO SCH (08:36)
[2017-03-01] MEDS: Metoprolol Tartrate TAB* 100 MG TAB PO SCH ×2 (08:36→13:24)
[2017-03-01] MEDS: Vitamin THERAPEUTIC TAB PO SCH (08:36)
[2017-03-01] MEDS: Docusate CAP* 100 MG PO SCH (08:36)
[2017-03-01] MEDS: metFORMIN* 1,000 MG TAB PO SCH (08:36)
[2017-03-01] MEDS: Magnesium Hydroxide LIQ* 30 ML UDC PO SCH (08:36)
[2017-03-01] MEDS ORDERED: Insulin GLARGINE(*) 1 UNITS UNIT SUBCUT SCH (09:00)
[2017-03-01] MEDS ORDERED: Lisinopril TAB* 10 MG PO SCH (09:00)
--- NOTE | 2017-03-01 09:00 | PN ---
Progress Note - Progress Note Date of Service: 03/01/17 SOAP: Subjective: patient resting comfortably with moderate left knee pain; controlled with pain meds Objective: Vital Signs Temp Pulse Resp BP Pulse Ox 98.6 F 90 18 149/80 96 03/01/17 07:24 03/01/17 07:24 03/01/17 08:36 03/01/17 07:24 03/01/17 07:24 Laboratory Last Values WBC 11.6 10^3/ul (3.5-10.8) H 02/28/17 07:52 RBC 3.26 10^6/ul (4.0-5.4) L 02/28/17 07:52 Hgb 9.7 g/dl (14.0-18.0) L 03/01/17 07:08 Hct 29 % (42-52) L 03/01/17 07:08 MCV 94 fL (80-94) 02/28/17 07:52 MCH 31 pg (27-31) 02/28/17 07:52 MCHC 33 g/dl (31-36) 02/28/17 07:52 RDW 13 % (10.5-15) 02/28/17 07:52 Plt Count 395 10^3/ul (150-450) 02/28/17 07:52 MPV 9 um3 (7.4-10.4) 02/28/17 07:52 Neut % (Auto) 77.8 % (38-83) 02/26/17 06:08 Lymph % (Auto) 10.5 % (25-47) L 02/26/17 06:08 Dubois % (Auto) 10.3 % (1-9) H 02/26/17 06:08 Eos % (Auto) 0.8 % (0-6) 02/26/17 06:08 Baso % (Auto) 0.6 % (0-2) 02/26/17 06:08 Absolute Neuts (auto) 9.6 10^3/ul (1.5-7.7) H 02/26/17 06:08 Absolute Lymphs (auto) 1.3 10^3/ul (1.0-4.8) 02/26/17 06:08 Absolute Monos (auto) 1.3 10^3/ul (0-0.8) H 02/26/17 06:08 Absolute Eos (auto) 0.1 10^3/ul (0-0.6) 02/26/17 06:08 Absolute Basos (auto) 0.1 10^3/ul (0-0.2) 02/26/17 06:08 Absolute Nucleated RBC 0.01 10^3/ul 02/26/17 06:08 Nucleated RBC % 0.1 02/26/17 06:08 INR (Anticoag Therapy) 1.49 (0.89-1.11) H 03/01/17 07:08 Sodium 128 mmol/L (133-145) L 02/28/17 07:52 Potassium 4.1 mmol/L (3.5-5.0) 02/28/17 07:52 Chloride 94 mmol/L (101-111) L 02/28/17 07:52 Carbon Dioxide 26 mmol/L (22-32) 02/28/17 07:52 Anion Gap 8 mmol/L (2-11) 02/28/17 07:52 BUN 16 mg/dL (6-24) 02/28/17 07:52 Creatinine 0.88 mg/dL (0.67-1.17) 02/28/17 07:52 Est GFR ( Amer) 112.5 (>60) 02/28/17 07:52 Est GFR (Non-Af Amer) 87.5 (>60) 02/28/17 07:52 BUN/Creatinine Ratio 18.2 (8-20) 02/28/17 07:52 Glucose 129 mg/dL (70-100) H 02/28/17 07:52 POC Glucose (mg/dL) 139 mg/dL (74-106) H 03/01/17 07:15 Lactic Acid 1.2 mmol/L (0.5-2.0) 02/26/17 00:10 Calcium 8.6 mg/dL (8.6-10.3) 02/28/17 07:52 Urine Color Yellow 02/27/17 16:15 Urine Appearance Clear 02/27/17 16:15 Urine pH 6.0 (5-9) 02/27/17 16:15 Ur Specific [place] 1.005 (1.010-1.030) L 02/27/17 16:15 Urine Protein Negative (Negative) 02/27/17 16:15 Urine Ketones Negative (Negative) 02/27/17 16:15 Urine Blood Negative (Negative) 02/27/17 16:15 Urine Nitrate Negative (Negative) 02/27/17 16:15 Urine Bilirubin Negative (Negative) 02/27/17 16:15 Urine Urobilinogen Negative (Negative) 02/27/17 16:15 Ur Leukocyte Esterase Negative (Negative) 02/27/17 16:15 Urine Glucose Negative (Negative) 02/27/17 16:15 incision: c/d; dressing changed Assessment: s/p left TKA Plan: 1) WBAT 2) Hospitalist co-managing 3) Lovenox/Coumadin/SCD's for DVT prophylaxis 4) [facility] rehab today 5) F/U with Dr. López 10 days
[2017-03-01] MEDS: Insulin LISPRO* 1 UNITS UNIT SUBCUT SCH ×2 (09:49→12:48)
--- NOTE | 2017-03-01 11:42 | DS ---
Amended report to enter co-signer on report. DISCHARGE SUMMARY: DATE OF ADMISSION: 02/25/17 DATE OF DISCHARGE: 03/01/17 SURGEON: Angela López MD (dictated by INOCENTE Paz). PRINCIPAL DIAGNOSIS: Severe end-stage degenerative osteoarthritis of the left knee. DISCHARGE DIAGNOSIS: Severe end-stage degenerative osteoarthritis of the left knee. HISTORY OF PRESENT ILLNESS: Mr. Domínguez is a 61-year-old gentleman with severe end- stage osteoarthritis of the left knee. He failed conservative management and has elected to proceed with a left total knee arthroplasty. HOSPITAL COURSE: Mr. Domínguez is a 61-year-old gentleman who was admitted electively to the hospital on 02/25/17 and underwent a left total knee arthroplasty. He tolerated the procedure well. No complications. Postoperatively, he was placed on Lovenox and Coumadin for DVT prophylaxis. On postop day 1, his H and H was 10.9 and 32; on postop day 2, 10 and 30; on postop day 3, 10.5 and 32; postop day 4, 10.2 and 31; at the time of discharge, his H and H was 9.7 and 29. His INR went from 1.45 on postop day 1 to 3.29 on postop day 2; on postop day 3, his INR went back down to 2.4; and at the time of discharge, his INR was 1.49. At the time of discharge on 03/01/17, he was afebrile. His wound was clean and dry with no signs of infection. He was transferred to a swing bed at [facility] for inpatient rehabilitation. MEDICATIONS UPON DISCHARGE: 1. Colace. 2. Gabapentin 300 mg twice a day. 3. Insulin, Humalog. 4. Lisinopril 40 mg daily. 5. Glucophage 1000 mg twice a day. 6. Lopressor 100 mg 3 times a day. 7. Multivitamin. 8. Percocet 5/325, 1 to 2 tabs every 4 to 6 hours. 9. Coumadin 2 mg. PHYSICAL EXAM UPON DISCHARGE: He was afebrile. His vital signs were stable. His wound was clean and dry. There is no signs of infection. He has intact bilateral lower extremity strength, 2+ dorsalis pedis pulses and intact sensation. DISCHARGE INSTRUCTIONS: The patient was transferred to a swing bed at [facility] for continued inpatient rehabilitation. He was asked to remain on Coumadin for DVT prophylaxis. His INR at the time of discharge was 1.49. His Coumadin dosing for the next 3 days is 6 mg tonight, 4 mg Wednesday night, 4 mg Wednesday night. We have asked for his INR to be rechecked on . He can continue to take Percocet as needed for pain every 4 to 6 hours, as well as Colace 2 to 3 times a day as needed for constipation. He is weightbearing as tolerated. Dr. López would like to see him back in her clinic in 10 to 14 days. We have asked him to call our office sooner if he has any questions or concerns. INOCENTE PAZ [id number]/[facility] #: [id number] MTDEvan
[2017-03-01 12:08] VITALS: BP 122/64
--- NOTE | 2017-03-02 04:39 | DS ---
CC: Dr. Roblero; Dr. Meeks (new primary care provider); Dr. Malone; Dr. López DISCHARGE SUMMARY: DATE OF ADMISSION: 02/25/17 DATE OF DISCHARGE: 03/01/17 ADDENDUM: For full details about the patient's acute hospital stay for his left knee replacement, I refer you to INOCENTE Saldana's discharge summary. I just want to add about the patient's carpal tunnel. The patient underwent left carpal tunnel rele ase and right carpal tunnel injection with Dr. Malone on January 12. He states that he did not have any improvement in his symptoms and he actually feels that his symptoms are worse with more tingling an d weakness. He is able to move his hands with encouragement, but I believe he probably needs furthe r evaluation and maybe consider surgery on the right depending on Dr. Malone's opinion. Regarding his diabetes, his glucose was well controlled during the hospital stay and he is being dis charged on Lantus and metformin like he was doing before at home. The patient would benefit from occupational therapy while he is at rehab, but he will need follow up with his new primary care provider, Dr. Meeks, and with Dr. Malone as outpatient for further evalua tion and treatment of his carpal tunnel. [id number]/[facility] #: [id number]
== END 2017-03-01 13:35 | DRG 302 ==
LOC: AA 07:32 → SSU 14:34
PROVIDERS: ADMIT Orthopaedic Surgery Adult Reconstructive Orthopaedic Surgery; ATTEND Orthopaedic Surgery Adult Reconstructive Orthopaedic Surgery
PROC: 0SRD0J9 Replacement of Left Knee Joint with Synthetic Substitute, Cemented, Open Approach (ICD-10-PCS; principal; 2017-02-25 09:15)
DX: M17.12 Unilateral primary osteoarthritis, left knee (principal); I11.0 Hypertensive heart disease with heart failure; I50.9 Heart failure, unspecified; E11.40 Type 2 diabetes mellitus with diabetic neuropathy, unspecified; E87.1 Hypo-osmolality and hyponatremia; Z68.41 Body mass index [BMI] 40.0-44.9, adult; G89.29 Other chronic pain; M54.9 Dorsalgia, unspecified; M25.762 Osteophyte, left knee; G56.01 Carpal tunnel syndrome, right upper limb; E66.01 Morbid (severe) obesity due to excess calories; K59.00 Constipation, unspecified; G47.33 Obstructive sleep apnea (adult) (pediatric); R50.9 Fever, unspecified; R91.8 Other nonspecific abnormal finding of lung field; I25.10 Atherosclerotic heart disease of native coronary artery without angina pectoris; Z91.041 Radiographic dye allergy status; Z82.49 Family history of ischemic heart disease and other diseases of the circulatory system; Z84.89 Family history of other specified conditions; Z79.4 Long term (current) use of insulin; Z79.01 Long term (current) use of anticoagulants
CPT/HCPCS: 36415; 62327; 71010; 72125; 80048; 81003; 83605; 85014; 85018; 85025; 85027; 85048; 85610; 87040; 87641; 88305; 88311; 94760; 94762; A9270-GY; C1776; J0690; J0780; J1650; J2250; J2704; J2795; J3010

== ENCOUNTER 2018-02-04 08:19 | Inpatient (IN) | payer OTHER ==
[~2018-02-04 08:19] MED LIST changes: +Dexamethasone TAB* 4 MG PO ONE; +DiMENhydriNATE IV* 50 MG/ML VIAL IV PUSH PRN; +Morphine INJ* 2 MG/ML 1 ML CARPUJECT IV PRN; -Morphine INJ* 4 MG/ML 1 ML SYRINGE IV PRN; +Naloxone* 0.4 MG/ML 1 ML VIAL IV PRN; +Ondansetron INJ* 2 MG/ML VIAL ONE; -oxyCODONE/Acetamin 5/325 MG* TAB PO PRN
[2018-02-04] MEDS ORDERED: Ondansetron ODT TAB* 4 MG ONE (08:27)
[2018-02-04] MEDS ORDERED: Famotidine IV* 10 MG/ML 2 ML (20 mg) ONE (08:27)
[2018-02-04] MEDS ORDERED: Dexamethasone IV* 4 MG/ML 1 ML (4 MG) ONE ×2 (08:27→14:01)
[2018-02-04] MEDS ORDERED: ceFAZolin 2 GM PREMIX (*) 2 GM/50 ML BAG IVPB ONE (08:27)
[2018-02-04] MEDS ORDERED: Dexamethasone TAB* 4 MG ONE (08:51)
[2018-02-04] MEDS ORDERED: fentaNYL* 50 MCG/ML 5 ML VIAL (250 MCG VIAL) ONE ×2 (08:52→11:19)
[2018-02-04] MEDS ORDERED: Midazolam* 1 MG/ML 5 ML VIAL (5 MG) ONE (08:52)
[2018-02-04] MEDS ORDERED: Atracurium* 10 MG/ML 10 ML VIAL ONE (08:52)
[2018-02-04] MEDS ORDERED: KETAMINE HCL* 50 MG/ML 10 ML VIAL ONE (08:55)
[2018-02-04] MEDS ORDERED: PROPOFOL ONE (09:16)
[2018-02-04] MEDS ORDERED: Propofol* 300 ML ONE (09:17)
[2018-02-04] MEDS ORDERED: ceFAZolin 1 GM in Dextrose (*) 1 GM/50 ML BAG IVPB ONE (09:44)
[2018-02-04] MEDS ORDERED: Bacitracin IV* 50,000 UNITS INJ ONE (09:45)
[2018-02-04] MEDS ORDERED: Lidocaine 1% MPF wEPI 200,000* 30 ML SDV ONE (09:45)
[2018-02-04] MEDS ORDERED: Thrombin 5,000 UNITS* 1 APPLIC KIT - topical use - TOPICAL ONE (09:45)
[2018-02-04] MEDS ORDERED: Morphine INJ* 10 MG/ML 1 ML CARPUJECT ONE (13:43)
[2018-02-04] MEDS ORDERED: Propofol* 10 MG/ML 20 ML BTL IV PUSH ONE (14:01)
[2018-02-04] MEDS ORDERED: Norepinephrine VIAL* 1 MG/ML 4 ML VIAL ONE (14:01)
[2018-02-04] MEDS ORDERED: Succinylcholine* 20 MG/ML 10 ML VIAL ONE (14:01)
[2018-02-04] MEDS ORDERED: ceFAZolin 1 GM VIAL(*) ONE (14:01)
[2018-02-04] MEDS ORDERED: PROCHLORPERAZINE INJ 5 MG/ML 2 ML VIAL ONE (14:01)
[2018-02-04] MEDS ORDERED: Lidocaine 2% PF * 5 ML VIAL ONE (14:02)
[2018-02-04] MEDS ORDERED: Phenylephrine INJ* 10 MG/ML 1 ML VIAL (10 MG) ONE (14:02)
[2018-02-04] MEDS ORDERED: Labetalol IV* 5 MG/ML 20 ML VIAL ONE (14:23)
[2018-02-04] MEDS ORDERED: Flumazenil* 0.1 MG/ML 5 ML MDV ONE (14:38)
[2018-02-04] MEDS ORDERED: Naloxone* 0.4 MG/ML 1 ML VIAL ONE (15:13)
[2018-02-04] MEDS ORDERED: Ondansetron INJ* 2 MG/ML VIAL IV PRN (15:30)
[2018-02-04] MEDS ORDERED: Morphine VIAL* 4 MG/ML VIAL (1 ml vial) IV PRN (15:35)
[2018-02-04] MEDS ORDERED: Cyclobenzaprine TAB* 10 MG PO PRN (15:38)
--- NOTE | 2018-02-04 16:01 | RAD ---
INDICATION: Posterior cervical decompression and fusion COMPARISONS: December 20, 2017 TECHNIQUE: Fluoroscopy was provided for a surgical procedure. Total fluoroscopy time is: 20.8 seconds FINDINGS: Spot images demonstrate posterior cervical fusion from C3 through C6. IMPRESSION: FLUOROSCOPY WAS PROVIDED FOR A SURGICAL PROCEDURE CPT II Codes: G9500
[2018-02-04] MEDS ORDERED: Dextrose 50% Syringe 50 ML* 25 GM/50 ML SYRINGE IV PUSH PRN (17:09)
[2018-02-04] MEDS: Gabapentin CAP(*) 300 MG PO SCH (21:00)
[2018-02-04] MEDS: Acetaminophen TAB* 325 MG PO PRN (21:01)
[2018-02-04] MEDS: Potassium Chlor TAB* 10 MEQ TAB.ER PO SCH (21:02)
[2018-02-04] MEDS: Metoprolol Tartrate TAB* 100 MG TAB PO SCH (21:02)
[2018-02-04] MEDS: Insulin LISPRO* 1 UNITS UNIT SUBCUT SCH (21:12)
[2018-02-04] MEDS: HYDROcodone/ACETAMIN 5-325 MG* 1 TAB PO PRN (23:05)
--- NOTE | 2018-02-05 00:57 | CONS ---
CC: Dr. Meeks; Dr. Damon; Dr. Zapata * CONSULTATION REPORT: DATE OF CONSULT: 02/04/18 PATIENT OF: Dr. Damon. REFERRED TO: Dr. Zachery Rivas. PRIMARY CARE PHYSICIAN: Dr. Geoff Meeks, [facility]. CHIEF COMPLAINT: Neck pain. REASON FOR CONSULT: Medical co-management. HISTORY OF PRESENT ILLNESS: Mr. Domínguez is a pleasant 62-year-old morbidly gentleman, who carries past medical history significant for hypertension, diabetes mellitus, and obstructive sleep apnea, who has been suffering from chronic neck pain related to cervical spondylotic myelopathy. The patient has been seen by Dr. Zapata in the past and had multiple images done including an MRI of the cervical and lumbar spine and was found to be a good candidate for cervical fusion to be done by Dr. Damon on a later date. The patient himself has been tried multiple conservative measures regarding his cervical disk disorder with myelopathy; however, all measures failed to take care of his pain or chronic numbness. He also has type 2 diabetes mellitus for which he has been having some neuropathy that might be also contributing to his chronic neck pain. The patient was scheduled electively for cervical fusion and he presented today to the same day surgery in anticipation for surgery. He was taken to the operating room where he had a C3 to C6 cervical fusion by Dr. Damon that went essentially well. After recovery, the patient was transferred to the surgical floor for observation overnight. Given his multiple medical comorbidities, we were asked to see the patient for a medical comanagement. PAST MEDICAL HISTORY: As mentioned above significant for hypertension, diabetes mellitus with peripheral neuropathy, lumbar spondylosis, morbid obesity , spinal stenosis, cervical spondylosis, lower back pain, chronic shoulder pain , as well as bilateral carpal tunnel syndrome, and gout. PAST SURGICAL HISTORY: Significant for tonsillectomy and knee replacement on the left side in 2017. The patient also had a cardiac stress test in November of 2016 with small areas of anterior wall ischemia, but no evidence of infarction. He had an ejection fraction of 40%, elevated TID of 1.2 that believed to be intermediate to high risk study. The patient underwent cardiac clearance and was found to be optimized for surgery earlier today. CURRENT MEDICATIONS: His medications at home include: 1. Norvasc 10 mg p.o. daily. 2. Aspirin 325 mg p.o. daily. 3. Vitamin D3 5000 units p.o. q.a.m. 4. Lasix 40 mg p.o. daily. 5. Neurontin 300 mg p.o. t.i.d. 6. Lisinopril 40 mg p.o. daily. 7. Metformin 1000 mg p.o. b.i.d. 8. Metoprolol 100 mg p.o. t.i.d. 9. Potassium chloride 10 mEq p.o. b.i.d. ALLERGIES: He is allergic to IODINE CONTRAST and ORAL IV CONTRAST as well. FAMILY HISTORY: Noncontributory. SOCIAL HISTORY: The patient is a nonsmoker, who is single and lives alone. 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 He denies alcohol intake. His healthcare proxy is his brother. REVIEW OF SYSTEMS: See HPI, otherwise 14-point review of systems were reviewed and otherwise negative. PHYSICAL EXAM: General: He is a pleasant, morbidly obese upper middle-aged gentleman, in no acute distress or discomfort at the time of consultation. Vitals revealed temperature of 97.2, heart rate of 96, blood pressure of 144/90 , respiration of 17, and O2 sat of 98% on 2 L oxygen. HEENT: Head is normocephalic, atraumatic. Sclerae are anicteric. PERRLA. EOMs intact. Oropharynx is pink and moist with no exudate. Neck: Exam limited since the patient has just got out of surgery after cervical fusion. There are no carotid bruits and thyroid gland is not enlarged. Lungs: Clear to auscultation bilaterally. Heart: Regular rate and rhythm. Normal S1 and S2 without murmurs, rubs or gallops. Back: With normal curvature. No CVA tenderness. Abdomen: Soft, round and obese, nontender and nondistended. No hernias, masses or hepatosplenomegaly. There is no guarding, rigidity or rebound tenderness. Extremities: Without cyanosis, clubbing, or edema. Neurologic: Grossly intact. The patient is able to move all extremities. Handgrip is equal bilaterally. Tongue is midline. Sensation is intact throughout. Rectal Exam: Deferred at this time. LABORATORY WORKUP: CBC done last week on 01/28/18 with white count of 8000, hemoglobin 14.7, hematocrit of 42 and platelets of 291. Chemical panel done on the same day with sodium of 137, potassium 4.7, chloride 98, CO2 of 30, BUN of 25, creatinine of 1.16. His hemoglobin A1c is 7.6. Uric acid 8.4. Iron study normal and LFTs within normal limits. ACCESSORY DIAGNOSTIC DATA: Cervical spine x-ray done last month as a preoperative image showed degenerative changes to the cervical spine without any evidence of instability. IMPRESSION: A 62-year-old morbidly obese gentleman with history of hypertension , diabetes mellitus, cervical spine stenosis and myelopathy, who is postop day # 0 status post C3 to C6 cervical fusion, who will be admitted under neurosurgical services for observation and we were asked to see him for co- medical management. ASSESSMENT AND PLAN: 1. Status post cervical spine fusion, management per the neurosurgical team. The patient will likely to be in the Swisher J collar with MERCY drain as instructed. Neuro check will be done as well. He will be observed overnight at the surgical stay unit and will continue pain control. 2. Hypertension. I will continue his Lasix, lisinopril as prescribed. He appears to be slightly hypertensive at this postoperative time; however, we will await pain control that might contribute to his increased blood pressure. 3. Diabetes mellitus. We will hold metformin for now and cover him q.a.c. and q.h.s. with sliding scale. He will resume regular diet. 4. Sleep apnea. The patient informs me that he has been diagnosed with sleep apnea for years; however, he refused to use a CPAP at home. He had few apneic episodes while at PACU that required Narcan as well as oxygen via mask; however , he appears to be stable at this time with good oxygen saturation on 2 L via nasal cannula and we will initiate CPAP treatment for tonight. 5. DVT prophylaxis. SCDs for the time being. 6. Code status: He is a full code. 7. Disposition. Observation. Admission to [facility] per neurosurgical team, medical consultation for comanagement, and anticipate discharge to home tomorrow if stable. TIME SPENT: I spent approximately 60 minutes consulting on this patient with more than 50% spent taking history and performing physical exam. I have discussed the case with Dr. Rivas, who agreed to plans and we will follow him up accordingly. Thank you for this consultation. INOCENTE PINA [id number]/[facility] #: [id number] FRANK
[2018-02-05] MEDS: Acetaminophen TAB* 325 MG PO PRN (01:04)
[2018-02-05] MEDS: HYDROcodone/ACETAMIN 5-325 MG* 1 TAB PO PRN ×4 (06:14→22:34)
--- NOTE | 2018-02-05 08:17 | RAD ---
INDICATION: Postoperative fusion COMPARISON: December 20, 2017 TECHNIQUE: 2 views are submitted FINDINGS: There is interval posterior fusion at at C3-C6. There is no evidence of hardware failure. Degenerative disc disease is noted at C5-C6 and C6-C7 with endplate sclerosis and bony spur formation as well. IMPRESSION: POSTOPERATIVE FUSION C3-C6. NO EVIDENCE OF HARDWARE FAILURE.
--- NOTE | 2018-02-05 08:58 | OP ---
OPERATIVE REPORT: DATE OF OPERATION: 02/04/18 DATE OF : 51 SURGEON: Sameer Damon MD. HAND OR MACHINE PASTER: INOCENTE Lake. The case was done with the assistance of surgical PA because of the complexity of the case. ANESTHESIA: General. PRE-OP DIAGNOSIS: Degenerative disease, cervical spondylotic myelopathy. POST-OP DIAGNOSIS: Degenerative disease, cervical spondylotic myelopathy. OPERATIVE PROCEDURE: The patient underwent posterior cervical decompression and fusion C3 to C6 with C2 to C7 decompression. C3, C4, C5, C6 lateral mass screws. Bilateral C3-C4, C4-C5, C5-C6 facetectomies with locally harvested autologous bone graft and DBX putty with intraoperative neuromonitoring. ESTIMATED BLOOD LOSS: 75 cc. COMPLICATIONS: None. SUMMARY: The patient is a very pleasant 62-year-old gentleman with multiple comorbidities including heart problems and diabetes, sleep apnea who was found to have progressive weakness and loss of dexterity in the upper extremities. He was found to have cervical spondylotic myelopathy and MRI revealed significant stenosis and cord signal changes. After failing conservative modalities, the patient was offered the option of surgical intervention. After explaining the expectation, limitations, possible complications of the procedure to the patient and his brother with complications including, but not limited to, bleeding, infection, risk of injury to adjacent structures, paralysis, , need for additional procedure, anesthesia risk, stroke, blindness, cancer, instability, hardware failure, adjacent level disease, pseudoarthrosis, need for additional procedures, anesthesia risk, the patient was agreeable to proceed with surgery. Informed consent was obtained. The patient understood that his condition may not improve, in fact might get worse after surgery and that the purpose of the surgery is to stabilize the condition and avoid worsening of his condition. He also understood that he may require additional procedures in the future and that the operative plan may be modified according to the intraoperative findings and conditions. DESCRIPTION OF PROCEDURE: The patient was brought to the operating room and was placed under general anesthesia by the anesthesia team. He was carefully positioned prone on Abimael table and all bony prominences were meticulously padded. Hair was removed with surgical clippers and skin was prepped and draped in standard fashion. After appropriate surgical pause and patient identification, a midline incision over the spinous process of C2 to C7 was marked on the skin and was infiltrated with local anesthetic. A #10 surgical blade was used to incise the skin. An incision was carried down with Bovie cautery. The dorsal fascia was divided on the both sides of the midline with Bovie cautery and the paraspinal musculature was elevated with Bovie cautery and periosteal elevators. The lamina of C3, C4, C5, C6 and the superior part of C7 and inferior of C2 were then exposed as well as the facets. Self- retaining retractor was introduced into the field and after the confirmation of correct operative level with intraoperative fluoroscopic imaging, the airline pilot/first officer holes for the entry point were placed with high speed drill. The trajectory of the screws in the lateral mass was then made with handheld drill and a Friend probe was used to ensure bony garza in every direction of the trajectories. High-speed drill was used to perform extended facetectomies at C3-C4, C4-C5, C5- C6 bilaterally and DBX putty was placed into the facetectomy sites. Vertex Medtronic lateral mass screws were placed in the lateral mass of C3, C4, C5 and C6 bilaterally and intraoperative fluoroscopic imaging confirmed excellent placement of all hardware. The right C3 screw was decided to be gently repositioned as on the lateral x-ray had slightly inferior trajectory. After removing the right C3 lateral mass screw, a Friend probe was used to check for bony wall on all sides of the lateral mass screw trajectory. There was no breach that was identified. Two titanium rods were used to connect the screw heads and slight compression was performed and the screw heads were secured with screw head caps. High-speed drill was used to perform drilling of the exposed bony surfaces and also a laminectomy of C3, C4, C5 and C6, superior part of C7, inferior part of C2 was performed with high-speed drill and Kerrison punches. Locally harvested bone from the laminectomy site was used for the arthrodesis part of the procedure after being morcellized and mixed with DBX putty. This was placed in both lateral gutters, and after copious irrigation and confirmation of meticulous hemostasis, a Rene drain was placed and tunneled through a separate stab wound incision. The wound was then closed by layers after confirmation of meticulous hemostasis, meticulous inspection of the wound and copious irrigation. A 0 Vicryl suture was used to approximate the dorsal fascia while the subcutaneous tissues was approximated with interrupted 2-0 Vicryl suture. The skin was then approximated with 2-0 Prolene sutures and covered with sterile sponges, and at the end of the procedure, all counts were reported to be correct, and the patient remained hemodynamically stable throughout the case, and intraoperatively, the patient's neurological monitoring was stable throughout the case. The patient was then turned supine, was extubated and transferred to recovery in excellent condition. The case was done with the assistance of surgical PA because of the complexity of the case. [id number]/[facility] #: [id number] FRANK
[2018-02-05] MEDS: Gabapentin CAP(*) 300 MG PO SCH ×3 (09:12→21:00)
[2018-02-05] MEDS: Metoprolol Tartrate TAB* 100 MG TAB PO SCH ×3 (09:12→21:00)
[2018-02-05] MEDS: Lisinopril TAB* 10 MG PO SCH (09:12)
[2018-02-05] MEDS: Potassium Chlor TAB* 10 MEQ TAB.ER PO SCH ×2 (09:12→21:01)
[2018-02-05] MEDS: Furosemide TAB* 40 MG PO SCH (09:12)
[2018-02-05] MEDS: amLODIPine TAB* 5 MG PO SCH (09:13)
[2018-02-05] MEDS: Insulin LISPRO* 1 UNITS UNIT SUBCUT SCH ×4 (09:13→21:01)
--- NOTE | 2018-02-05 11:17 | PN ---
Progress Note - Progress Note Date of Service: 02/05/18 SOAP: Subjective: [] No events ON. Tolerated procedure well. MJ collar. Ambulates, Voids. Objective: []VSS, Afebrile Wound s,c,d MERCY in place. Output noted. AAOx3 CYRUS, CN II-XII grossly intact. Motor 5/5 all extremities Sensory grossly intact to light touch. Assessment: []62 yom cervical spondylotic myelopathy, POD #1 PCDF C3-6 Plan: []Monitor VS, Neurochecks. Monitror MERCY output. Encourage ambulation. DC planning Appreciate IM consult. Alex Damon MD
--- NOTE | 2018-02-05 18:55 | PN ---
Subjective Date of Service: 02/05/18 Interval History: . Interviewed and examined patient at bedside; Discussed case with Dr. Damon; Reviewed previous notes and radiology results; patient doing well this AM was out of bed to chair when I walked in. denies extreme pain -- appropriate post op soreness. eating breakfast good spirits no concerning events overnight. Family History: Unchanged from Admission Social History: Unchanged from Admission Past Medical History: Unchanged from Admission Objective Active Medications: . Acetaminophen (Tylenol Tab*) 650 mg PO Q4H PRN PRN Reason: PAIN Last Admin: 02/05/18 01:04 Dose: 650 mg Hydrocodone Bitart/Acetaminophen ([place] 5-325 Tab*) 2 tab PO Q4H PRN PRN Reason: marked pain Last Admin: 02/05/18 16:54 Dose: 2 tab Amlodipine Besylate (Norvasc Tab*) 10 mg PO QAM [facility] Last Admin: 02/05/18 09:13 Dose: 10 mg Cyclobenzaprine HCl (Flexeril Tab*) 10 mg PO TID PRN PRN Reason: muscle spasm Dextrose (D50w Syringe 50 Ml*) 12.5 gm IV PUSH .FOR FS < 60 - SS PRN PRN Reason: FS < 60 Furosemide (Lasix Tab*) [facility] [place] Last Admin: 02/05/18 09:12 Dose: 40 mg Gabapentin (Neurontin Cap(*)) 300 mg PO TID [facility] Last Admin: 02/05/18 14:37 Dose: 300 mg Lactated Ringer's (Lactated Ringers 1000 Ml Bag*) 1,000 mls @ 75 mls/hr IV .per rate [facility] Insulin Human Lispro (Humalog*) 0 units SUBCUT [facility]; Protocol Last Admin: 02/05/18 17:49 Dose: 3 units Lisinopril (Prinivil Tab*) 40 [facility] [place] Last Admin: 02/05/18 09:12 Dose: 40 mg Magnesium Hydroxide (Milk Of Magnesia Liq*) 30 ml PO DAILY PRN PRN Reason: CONSTIPATION Metoprolol Tartrate (Lopressor Tab*) 100 mg PO TID [facility] Last Admin: 02/05/18 14:38 Dose: 100 mg Morphine Sulfate (Morphine Vial*) 4 mg IV Q4H PRN PRN Reason: SEVERE PAIN Ondansetron HCl (Zofran Inj*) 4 mg IV Q6H PRN PRN Reason: NAUSEA/VOMITING Potassium Chloride (Klor Con Er Tab*) 10 meq PO BID JULIA Last Admin: 02/05/18 09:12 Dose: 10 meq . Vital Signs - 8 hr 02/05/18 02/05/18 02/05/18 11:30 11:36 12:19 Temperature 97.8 F Pulse Rate 74 Respiratory 16 18 18 Rate Blood Pressure 140/72 (mmHg) O2 Sat by Pulse 97 Oximetry 02/05/18 02/05/18 02/05/18 14:37 15:14 16:00 Temperature 97.4 F Pulse Rate 73 Respiratory 18 17 Rate Blood Pressure 153/75 (mmHg) O2 Sat by Pulse 94 94 Oximetry Oxygen Devices in Use Now: Nasal Cannula Appearance: NAD; wearing C-collar; iskw-C-ouuct surgery. Eyes: No Scleral Icterus Ears/Nose/Mouth/Throat: Clear Oropharnyx Neck: NL Appearance and Movements; NL JVP Respiratory: Symmetrical Chest Expansion and Respiratory Effort Cardiovascular: NL Sounds; No Murmurs; No JVD Abdominal: NL Sounds; No Tenderness; No Distention Lymphatic: No Cervical Adenopathy Extremities: No Edema Skin: No Rash or Ulcers Neurological: Alert and Oriented x 3 Lines/Tubes/Other Access: Clean, Dry and Intact Peripheral IV Nutrition: Taking PO's Assess/Plan/Problems-Billing . Assessment: 62 yo man s/p C-spine surgery with h/o HTN DM, MARCO, h/o CHF (with systolic heart failure) consulted for medical management HTN: well controlled. A bit high but no call for changing med sat this time. control pain as you are. defer changes to the outpatient setting. MARCO: CPAP ordered DM: POC reasonable; consistent-carbohydrate diet. CHF: no current evidence of fluid overload Morbid obesity: BMI ~ 43. - Patient Problems (1) CHF (congestive heart failure) Current Visit: No Status: Chronic Priority: High Code(s): I50.9 - HEART FAILURE, UNSPECIFIED Comment: - h/o systolic heart failure with EF noted at 40%, nonobstructive CAD noted on previous cath - cont Lasix, BB, UMER-I (2) DM2 (diabetes mellitus, type 2) Current Visit: No Status: Acute Priority: High Comment: - SSI ordered - POC glucose values 150 - 240. - Check A1C 02/06/18 - Consistent CHO diet. (3) Full code status Current Visit: No Status: Acute Priority: High Code(s): Z78.9 - OTHER SPECIFIED HEALTH STATUS (4) HTN (hypertension) Current Visit: No Status: Chronic Priority: High Code(s): I10 - ESSENTIAL (PRIMARY) HYPERTENSION Comment: - Continue lisonopril (5) Diabetic neuropathy Current Visit: Yes Status: Chronic Priority: High Code(s): E11.40 - TYPE 2 DIABETES MELLITUS WITH DIABETIC NEUROPATHY, UNSP Comment: - check AiC - SSI - noted (6) MARCO (obstructive sleep apnea) Current Visit: No Status: Acute Code(s): G47.33 - OBSTRUCTIVE SLEEP APNEA ( ADULT) (PEDIATRIC) Comment: - CPAP ordered
[2018-02-06] MEDS: Magnesium Hydroxide LIQ* 30 ML UDC PO PRN (01:40)
[2018-02-06] MEDS: Acetaminophen TAB* 325 MG PO PRN (05:54)
[2018-02-06 06:11] LABS: ABS Basophils 0.1 10^3/ul (0-0.2); ABS Eosinophils 0 10^3/ul (0-0.6); ABS Lymphocytes 2.1 10^3/ul (1.0-4.8); ABS Monocytes 1.3 10^3/ul (0-0.8); ABS Neutrophils 11.1 10^3/ul (1.5-7.7); ABS Nucleated RBC 0 10^3/ul; Eosinophil % 0.3 % (0-6); Hematocrit 37 % (42-52); Hemoglobin 12.7 g/dl (14.0-18.0); Lymphocyte % 14.4 % (25-47); Mean Corpuscular HGB Conc 34 g/dl (31-36); Mean Corpuscular Hemoglobin 31 pg (27-31); Mean Corpuscular Volume 92 fL (80-94); Mean Platelet Volume 8.4 um3 (7.4-10.4); Nucleated Red Blood Cells % 0.1; Platelet Count 246 10^3/ul (150-450); Red Blood Count 4.05 10^6/ul (4.00-5.40); Red Cell Distribution Width 13 % (10.5-15); White Blood Count 14.6 10^3/ul (3.5-10.8)
[2018-02-06 06:25] LABS: EGFR Non-African American 80.8 (>60)
[2018-02-06] MEDS: Furosemide TAB* 40 MG PO SCH (09:13)
[2018-02-06] MEDS: Metoprolol Tartrate TAB* 100 MG TAB PO SCH ×3 (09:13→21:08)
[2018-02-06] MEDS: Potassium Chlor TAB* 10 MEQ TAB.ER PO SCH ×2 (09:13→21:08)
[2018-02-06] MEDS: Gabapentin CAP(*) 300 MG PO SCH ×3 (09:13→21:07)
[2018-02-06] MEDS: Insulin LISPRO* 1 UNITS UNIT SUBCUT SCH ×4 (09:13→21:09)
[2018-02-06] MEDS: Lisinopril TAB* 10 MG PO SCH (09:13)
[2018-02-06] MEDS: amLODIPine TAB* 5 MG PO SCH (09:13)
[2018-02-06] MEDS: HYDROcodone/ACETAMIN 5-325 MG* 1 TAB PO PRN ×4 (10:01→21:49)
--- NOTE | 2018-02-06 12:38 | PN ---
Progress Note - Progress Note Date of Service: 02/06/18 SOAP: Subjective: []No events ON. Pain well controlled. MJ collar. Ambulates, Voids. Objective: []VSS, Afebrile Wound s,c,d MERCY was removed. Catheter appeared to be intact. No complications. Patient tolerated procedure well. AAOx3 CYRUS, CN II-XII grossly intact. Motor 5/5 all extremities Sensory grossly intact to light touch. Assessment: []62 yom cervical spondylotic myelopathy, POD #2 PCDF C3-6 Plan: []Monitor VS, Neurochecks. Encourage ambulation. DC planning, possible tomorrow. Appreciate IM consult. Alex Damon MD
--- NOTE | 2018-02-06 14:01 | PN ---
Subjective Date of Service: 02/06/18 Interval History: . still with some pain, not severe. likely dc tomorrow discussed his BS values ; he is usually on metformin; will start that given he has IV contrast allergy and would not need imaging with contrast. Consistent CHO diet ordered. . Family History: Unchanged from Admission Social History: Unchanged from Admission Past Medical History: Unchanged from Admission Objective Active Medications: . Acetaminophen (Tylenol Tab*) 650 mg PO Q4H PRN PRN Reason: PAIN Last Admin: 02/06/18 05:54 Dose: 650 mg Hydrocodone Bitart/Acetaminophen ([place] 5-325 Tab*) 2 tab PO Q4H PRN PRN Reason: marked pain Last Admin: 02/06/18 10:01 Dose: 2 tab Amlodipine Besylate (Norvasc Tab*) 10 mg PO QAM [facility] Last Admin: 02/06/18 09:13 Dose: 10 mg Cyclobenzaprine HCl (Flexeril Tab*) 10 mg PO TID PRN PRN Reason: muscle spasm Dextrose (D50w Syringe 50 Ml*) 12.5 gm IV PUSH .FOR FS < 60 - SS PRN PRN Reason: FS < 60 Furosemide (Lasix Tab*) 40 mg PO QAM [facility] Last Admin: 02/06/18 09:13 Dose: 40 mg Gabapentin (Neurontin Cap(*)) 300 mg PO TID [facility] Last Admin: 02/06/18 09:13 Dose: 300 mg Lactated Ringer's (Lactated Ringers 1000 Ml Bag*) 1,000 mls @ 75 mls/hr IV .per rate [facility] Insulin Human Lispro (Humalog*) 0 units [facility]; Protocol Last Admin: 02/06/18 13:10 Dose: 6 units Lisinopril (Prinivil Tab*) 40 mg PO QAM [facility] Last Admin: 02/06/18 09:13 Dose: 40 mg Magnesium Hydroxide (Milk Of Magnesia Liq*) 30 ml PO DAILY PRN PRN Reason: CONSTIPATION Last Admin: 02/06/18 01:40 Dose: 30 ml Metformin HCl (Glucophage*) 1,000 mg PO BID [facility] Metoprolol Tartrate (Lopressor Tab*) 100 mg PO TID [facility] Last Admin: 02/06/18 09:13 Dose: 100 mg Morphine Sulfate (Morphine Vial*) 4 mg IV Q4H PRN PRN Reason: SEVERE PAIN Ondansetron HCl (Zofran Inj*) 4 mg IV Q6H PRN PRN Reason: NAUSEA/VOMITING Potassium Chloride (Klor Con Er Tab*) 10 meq PO BID [facility]UL[facility] Last Admin: 02/06/18 09:13 Dose: 10 meq . Vital Signs - 8 hr 02/06/18 02/06/18 02/06/18 07:43 08:00 09:13 Temperature 98.4 F Pulse Rate 72 Respiratory 17 17 18 Rate Blood Pressure 155/79 (mmHg) O2 Sat by Pulse 96 96 Oximetry 02/06/18 02/06/18 02/06/18 10:01 11:21 12:08 Temperature 98.2 F Pulse Rate 69 Respiratory 18 16 18 Rate Blood Pressure 166/82 (mmHg) O2 Sat by Pulse 98 Oximetry Oxygen Devices in Use Now: Nasal Cannula Appearance: NAD; sitting in chair. Eyes: No Scleral Icterus Ears/Nose/Mouth/Throat: Clear Oropharnyx Neck: NL Appearance and Movements; NL JVP Respiratory: Symmetrical Chest Expansion and Respiratory Effort Cardiovascular: NL Sounds; No Murmurs; No JVD Abdominal: NL Sounds; No Tenderness; No Distention, No Hepatosplenomegaly Lymphatic: No Cervical Adenopathy Extremities: No Edema Skin: No Rash or Ulcers, - - Lumbar incision C/D/I. Neurological: Alert and Oriented x 3, NL Sensation, NL Muscle Strength and Tone Lines/Tubes/Other Access: Clean, Dry and Intact Peripheral IV Nutrition: Taking PO's Result Diagrams: 02/06/18 05:35 02/06/18 05:35 Assess/Plan/Problems-Billing . Assessment: 62 yo man s/p C-spine surgery with h/o HTN DM, MARCO, h/o CHF (with systolic heart failure) consulted for medical management HTN: well controlled. A bit high but no call for changing med sat this time. Control pain as you are. defer changes to the outpatient setting. MARCO: CPAP ordered DM: POC reasonable; consistent-carbohydrate diet. CHF: no current evidence of fluid overload Morbid obesity: BMI ~ 43. - Patient Problems (1) CHF (congestive heart failure) Current Visit: No Status: Chronic Priority: High Code(s): I50.9 - HEART FAILURE, UNSPECIFIED Comment: - h/o systolic heart failure with EF noted at 40%, nonobstructive CAD noted on previous cath - cont Lasix, BB, UMER-I (2) DM2 (diabetes mellitus, type 2) Current Visit: No Status: Acute Priority: High Comment: - SSI ordered - POC glucose values 150 - 240. - Check A1C 02/06/18 - Consistent CHO diet. (3) Full code status Current Visit: No Status: Acute Priority: High Code(s): Z78.9 - OTHER SPECIFIED HEALTH STATUS (4) HTN (hypertension) Current Visit: No Status: Chronic Priority: High Code(s): I10 - ESSENTIAL (PRIMARY) HYPERTENSION Comment: - Continue lisonopril (5) Diabetic neuropathy Current Visit: Yes Status: Chronic Priority: High Code(s): E11.40 - TYPE 2 DIABETES MELLITUS WITH DIABETIC NEUROPATHY, UNSP Comment: - check AiC - SSI - noted (6) MARCO (obstructive sleep apnea) Current Visit: No Status: Acute Code(s): G47.33 - OBSTRUCTIVE SLEEP APNEA ( ADULT) (PEDIATRIC) Comment: - CPAP ordered
[2018-02-06] MEDS ORDERED: Bisacodyl EC TAB* 5 MG PO ONE (17:04)
[2018-02-06] MEDS ORDERED: Docusate CAP* 100 MG PO ONE (17:04)
[2018-02-06] MEDS: metFORMIN* 1,000 MG TAB PO SCH (17:48)
[2018-02-07] MEDS: HYDROcodone/ACETAMIN 5-325 MG* 1 TAB PO PRN ×5 (04:40→21:15)
[2018-02-07] MEDS: Gabapentin CAP(*) 300 MG PO SCH ×3 (08:08→21:17)
[2018-02-07] MEDS: Lisinopril TAB* 10 MG PO SCH (08:09)
[2018-02-07] MEDS: Metoprolol Tartrate TAB* 100 MG TAB PO SCH ×3 (08:10→21:15)
[2018-02-07] MEDS: Potassium Chlor TAB* 10 MEQ TAB.ER PO SCH ×2 (08:10→21:16)
[2018-02-07] MEDS: Furosemide TAB* 40 MG PO SCH (08:10)
[2018-02-07] MEDS: metFORMIN* 1,000 MG TAB PO SCH ×2 (08:11→16:57)
[2018-02-07] MEDS: amLODIPine TAB* 5 MG PO SCH (08:12)
[2018-02-07] MEDS: Insulin LISPRO* 1 UNITS UNIT SUBCUT SCH ×4 (09:03→21:24)
--- NOTE | 2018-02-07 18:16 | PN ---
Progress Note - Progress Note Date of Service: 02/07/18 SOAP: Subjective: [] No events ON. Pain well controlled. MJ collar. Ambulates, Voids. Has some concerns that he may need help at home, as he lives alone. Objective: [] VSS, Afebrile Wound s,c,d AAOx3 CYRUS, CN II-XII grossly intact. Motor 5/5 all extremities Sensory grossly intact to light touch. Assessment: []62 yom cervical spondylotic myelopathy, POD #3 PCDF C3-6 Plan: []Monitor VS, Neurochecks. Encourage ambulation. DC planning, possible tomorrow. Appreciate IM consult. Alex Damon MD
[2018-02-08] MEDS: Gabapentin CAP(*) 300 MG PO SCH ×2 (09:22→16:34)
[2018-02-08] MEDS: amLODIPine TAB* 5 MG PO SCH (09:23)
[2018-02-08] MEDS: Potassium Chlor TAB* 10 MEQ TAB.ER PO SCH (09:23)
[2018-02-08] MEDS: Lisinopril TAB* 10 MG PO SCH (09:23)
[2018-02-08] MEDS: Furosemide TAB* 40 MG PO SCH (09:23)
[2018-02-08] MEDS: Insulin LISPRO* 1 UNITS UNIT SUBCUT SCH ×2 (09:23→12:23)
[2018-02-08] MEDS: Metoprolol Tartrate TAB* 100 MG TAB PO SCH ×2 (09:23→16:35)
[2018-02-08] MEDS: metFORMIN* 1,000 MG TAB PO SCH (09:24)
[2018-02-08] MEDS: HYDROcodone/ACETAMIN 5-325 MG* 1 TAB PO PRN ×2 (12:22→18:12)
[2018-02-08 16:33] VITALS: BP 138/73
[2018-02-08] MEDS: Magnesium Hydroxide LIQ* 30 ML UDC PO PRN (16:37)
== END 2018-02-08 18:15 | disposition home or self-care (01) | DRG 321 ==
LOC: OR 08:19 → SSU 18:40
PROVIDERS: ADMIT Neurological Surgery; ATTEND Neurological Surgery
PROC: 01N10ZZ Release Cervical Nerve, Open Approach (ICD-10-PCS; 2018-02-04)
PROC: 0RG2071 Fusion of 2 or more Cervical Vertebral Joints with Autologous Tissue Substitute, Posterior Approach, Posterior Column, Open Approach (ICD-10-PCS; principal; 2018-02-04 10:00)
DX: M47.12 Other spondylosis with myelopathy, cervical region (principal); G95.89 Other specified diseases of spinal cord; Z68.41 Body mass index [BMI] 40.0-44.9, adult; I50.22 Chronic systolic (congestive) heart failure; M19.90 Unspecified osteoarthritis, unspecified site; M10.9 Gout, unspecified; G89.29 Other chronic pain; M48.02 Spinal stenosis, cervical region; M50.30 Other cervical disc degeneration, unspecified cervical region; M50.11 Cervical disc disorder with radiculopathy, high cervical region; M41.82 Other forms of scoliosis, cervical region; E11.42 Type 2 diabetes mellitus with diabetic polyneuropathy; E66.01 Morbid (severe) obesity due to excess calories; G47.33 Obstructive sleep apnea (adult) (pediatric); M47.816 Spondylosis without myelopathy or radiculopathy, lumbar region; G56.03 Carpal tunnel syndrome, bilateral upper limbs; I25.10 Atherosclerotic heart disease of native coronary artery without angina pectoris; I11.0 Hypertensive heart disease with heart failure; Z96.652 Presence of left artificial knee joint; Z91.041 Radiographic dye allergy status; Z99.81 Dependence on supplemental oxygen
CPT/HCPCS: 36415; 72040; 76001; 80048; 83036; 85025; 94660; A9270-GY; C1713; C1776; J0330; J0690; J0780; J1100; J2001; J2250; J2270; J2310; J2704; J3010; J8540

== ENCOUNTER 2023-09-11 05:33 | Observation (INO) ==
[2023-09-11] MEDS ORDERED: Lactated Ringers 1000 ml BAG 1,000 ML IV ONE ×2 (05:38→06:32)
[2023-09-11 06:00] LABS: ABS Eosinophils 0.3 10^3/uL (0.0-0.5); ABS Monocytes 1.2 10^3/uL (0.0-1.1); ABS Neutrophils 9.5 10^3/uL (1.5-7.6); ABS Nucleated RBC 0.02 10^3/ul; Eosinophil % 2.3 %; Hematocrit 52.9 % (38-53); Lymphocyte % 15.1 %; Mean Corpuscular Hemoglobin 32.2 pg (27-33); Mean Corpuscular Hgb Conc 34.1 g/dL (31-36); Mean Corpuscular Volume 94.4 fL (80-97); Mean Platelet Volume 8.5 fL (7.5-11.2); Nucleated Red Blood Cells % 0.2 %/100WBC (0.0-0.8); Platelet Count 304 10^3/uL (150-450); Red Blood Count 5.61 10^6/uL (4.06-5.63); Red Cell Distribution Width 13.9 % (12-17); White Blood Count 12.9 10^3/uL (3.6-10.2)
[2023-09-11 06:20] LABS: Albumin 4.1 g/dL (3.2-5.2); Albumin/Globulin Ratio 1.3 (1-3); Calcium 9.4 mg/dL (8.6-10.3); Creatinine, Serum 2.15 mg/dL (0.67-1.17); Globulin 3.2 g/dL (2-4); Potassium 3.6 mmol/L (3.5-5.0); Total Bilirubin 0.7 mg/dL (0.2-1.0); Total Protein 7.3 g/dL (6.4-8.9); eGFR CKD-EPI 32.5 (>60)
[2023-09-11] MEDS ORDERED: Famotidine IV 10 MG/ML 2 ml VIAL (20 mg) IV SLOW PU ONE (07:00)
[2023-09-11 07:17] LABS: Anion Gap 20 mmol/L (2-16); Blood Urea Nitrogen 38 mg/dL (6-24); CO2 Carbon Dioxide 20 mmol/L (22-32); Calcium 9.2 mg/dL (8.6-10.3); Chloride 96 mmol/L (101-111); Creatinine, Serum 2.24 mg/dL (0.67-1.17); Glucose 281 mg/dL (70-100); Sodium 136 mmol/L (135-145)
[2023-09-11 09:03] LABS: ABS Lymphocytes 0.6 10^3/uL (1.0-4.8); ABS Monocytes 0.6 10^3/uL (0.0-1.1); ABS Neutrophils 11.1 10^3/uL (1.5-7.6); ABS Nucleated RBC 0.01 10^3/ul; Eosinophil % 0.3 %; Hematocrit 49.4 % (38-53); Hemoglobin 16.7 g/dL (13.2-16.3); Lymphocyte % 4.9 %; Mean Corpuscular Hemoglobin 32.1 pg (27-33); Mean Corpuscular Hgb Conc 33.9 g/dL (31-36); Mean Corpuscular Volume 94.6 fL (80-97); Mean Platelet Volume 8.6 fL (7.5-11.2); Nucleated Red Blood Cells % 0.1 %/100WBC (0.0-0.8); Platelet Count 266 10^3/uL (150-450); Red Blood Count 5.22 10^6/uL (4.06-5.63); Red Cell Distribution Width 13.8 % (12-17); White Blood Count 12.4 10^3/uL (3.6-10.2)
[2023-09-11 09:22] LABS: Calcium 9.1 mg/dL (8.6-10.3); Creatinine, Serum 1.96 mg/dL (0.67-1.17); Potassium 3.3 mmol/L (3.5-5.0); eGFR CKD-EPI 36.3 (>60)
[2023-09-11] MEDS ORDERED: Potassium Chlor 20 meq TAB.ER PO ONE (09:32)
[2023-09-11] MEDS ORDERED: Dextrose 50% Syringe 50 ml 25 GM/50 ML SYRINGE IV PUSH PRN (09:37)
[2023-09-11 09:59] LABS: Magnesium 1.5 mg/dL (1.9-2.7)
[2023-09-11] MEDS ORDERED: Potassium Chloride IV 20 MEQ in Lactated Ringers 1000 ml BAG 1,000 ML IVPB SCH (10:00)
[2023-09-11] MEDS ORDERED: Magnesium Sulfate 2 gm BAG 2 GM/50 ML BAG IVPB ONE (10:02)
[2023-09-11 10:13] LABS: TSH Ultra Thyroid Stim Horm 3.24 mcIU/mL (0.34-5.60)
[2023-09-11 11:11] LABS: Erythrocyte Sed Rate 0 mm/Hr (0-19)
[2023-09-11] MEDS: Heparin 5000 UNITS/ML 1 mL VIAL SUBCUT SCH ×2 (14:35→22:08)
[2023-09-11] MEDS: Famotidine IV 10 MG/ML 2 ml VIAL (20 mg) IV SLOW PU SCH (22:09)
[2023-09-11] MEDS: Potassium Chlor 10 meq TAB PO SCH (22:10)
[2023-09-12 05:26] LABS: ABS Basophils 0.1 10^3/uL (0.0-0.1); ABS Eosinophils 0.1 10^3/uL (0.0-0.5); ABS Monocytes 0.8 10^3/uL (0.0-1.1); ABS Neutrophils 10.5 10^3/uL (1.5-7.6); Eosinophil % 0.4 %; Hematocrit 40.6 % (38-53); Hemoglobin 13.9 g/dL (13.2-16.3); Lymphocyte % 8.2 %; Mean Corpuscular Hgb Conc 34.2 g/dL (31-36); Mean Corpuscular Volume 93.6 fL (80-97); Mean Platelet Volume 8.2 fL (7.5-11.2); Platelet Count 243 10^3/uL (150-450); Red Blood Count 4.33 10^6/uL (4.06-5.63); Red Cell Distribution Width 13.3 % (12-17); White Blood Count 12.4 10^3/uL (3.6-10.2)
[2023-09-12 05:48] LABS: Calcium 9.1 mg/dL (8.6-10.3); Creatinine, Serum 1.54 mg/dL (0.67-1.17); Potassium 4.7 mmol/L (3.5-5.0); eGFR CKD-EPI 48.5 (>60)
[2023-09-12] MEDS: Heparin 5000 UNITS/ML 1 mL VIAL SUBCUT SCH (05:55)
[2023-09-12] MEDS ORDERED: Aspirin EC 81 mg TAB.EC (enteric coated) PO SCH (09:00)
[2023-09-12] MEDS ORDERED: CHOLECALCIFEROL 5000 UNIT PO SCH (09:00)
[2023-09-12] MEDS ORDERED: Empagliflozin 25 MG TAB PO SCH (09:00)
[2023-09-12] MEDS: Famotidine IV 10 MG/ML 2 ml VIAL (20 mg) IV SLOW PU SCH (09:06)
[2023-09-12 09:19] VITALS: BP 126/69
[2023-09-12] MEDS: Potassium Chlor 10 meq TAB PO SCH (09:30)
[2023-09-12 10:49] LABS: Hepatitis C Antibody Negative (Negative)
[2023-09-12] MEDS ORDERED: Cholecalciferol (VIT D3) 1,000 unit TAB PO SCH (11:58)
== END 2023-09-12 12:40 | disposition home or self-care (01) ==
LOC: EDHOLD 05:33 → ED 05:33 → SUATTDRO 08:26 → MED 10:32
PROVIDERS: ADMIT Internal Medicine; ATTEND Student in an Organized Health Care Education/Training Program